=== PATIENT | female | born 1950 | race Caucasian/White ===

== ENCOUNTER 2019-05-10 08:37 | Inpatient (IN) | payer OTHER, MEDICARE ==
[2019-05-10] MEDS: NA CHLORIDE 0.9% 1,000 ML ONE ×3 (08:45→19:15)
[2019-05-10] MEDS ORDERED: CEFAZOLIN/SWI 1gm 1 GM/10 ML SYR ONE (08:59)
[2019-05-10 09:00] LABS: Potassium 4.5 mmol/L (3.5-5.1)
[2019-05-10 09:01] LABS: Absolute Lymphocytes (CBC) 2.4 K/uL (0.7-4.9); Basophils % 0.7 % (0-1.3); Hematocrit 49.1 % (36.0-45.0); Lymphocytes % 25.8 % (15.3-44.8); MPV 7.9 fL (7.6-11.3); RBC Red Blood Cell Count 5.49 M/uL (3.86-4.86)
--- NOTE | 2019-05-10 09:03 | RAD REPORT ---
EXAM DESCRIPTION: Hilda Sheikh (2 Views)05/10/2019 8:38 am CLINICAL HISTORY: Breast cancer. Preop breast surgery COMPARISON: None FINDINGS: The lungs appear clear of acute infiltrate. The heart is normal size IMPRESSION: No acute abnormalities displayed
--- NOTE | 2019-05-10 10:00 | RAD REPORT ---
EXAM DESCRIPTION: NM - Lymphoscintigraphy - 05/10/2019 9:33 am CLINICAL HISTORY: Breast cancer COMPARISON: None. TECHNIQUE: Four injections of 0.01 millicuries technetium filtered sulfur colloid administered into the the katy arerolar region of the right breast. The injections were placed at Twelve o'clock, 3 o'c lock, 6 o'clock and 9 o'clock positions. Subsequently a scintigram was obtained which demonstrated the radiotracer within these locations. IMPRESSION: Right breast lymphoscintigram
--- NOTE | 2019-05-10 10:28 | EKG ---
Test Date: 2019-05-10 Test Time: 07:12:35 [place] Traffic Checker: SKG MEASUREMENT RESULTS: Intervals: Rate: 80 TX: 136 QRSD: 74 QT: 348 QTc: 401 [place]: P: 70 TX: 136 QRS: 53 T: 78 INTERPRETIVE STATEMENTS: Normal sinus rhythm Low voltage QRS Borderline ECG No previous ECG available for comparison Electronically Signed On 05-10-19 10:27:43 CDT by Min Barrios
[2019-05-10] MEDS ORDERED: ALBUTEROL 2.5 MG/3 ML NEB SOL ONE (11:04)
[2019-05-10] MEDS ORDERED: METHYLENE BLUE 0.5% 10 ML AMP ONE (11:05)
[2019-05-10] MEDS ORDERED: ROCURONIUM 50 MG/5 ML VIAL IV ONE (11:35)
[2019-05-10] MEDS ORDERED: EPHEDRINE SULF 50 MG/ML VIAL ONE (11:52)
[2019-05-10] MEDS ORDERED: NS 0.9% VIAL 10 ML ONE ×2 (11:52→12:07)
[2019-05-10] MEDS ORDERED: Phenylephrine HCl 10 MG/ML 1 ML VIAL ONE (12:07)
[2019-05-10] MEDS ORDERED: NA CHLORIDE 0.9% 1,000 ML ONE (13:23)
[2019-05-10] MEDS: HYDROMORPHONE HCL 1 MG/ML INJ ONE ×2 (14:53→15:02)
--- NOTE | 2019-05-10 15:40 | OP ---
Date of Procedure: 05/10/2019 Surgeon: Gutierrez Wilburn MD Senior Quality Manager: MILDRED Dooley. Preoperative Diagnosis: Right breast cancer. Postoperative Diagnosis: Right breast cancer. Procedures: Right breast mastectomy, sentinel node biopsy and axillary dissection. Estimated Blood Loss: Minimal. Specimen: Right breast margins free sentinel node which was positive and axillary dissection. Findings: As above. Anesthesia: General. Complications: None. Drains: ZAHEER #7 flat x2. Patient tolerated the procedure in stable condition, taken to Recovery in good general condition. Procedure In Detail: Patient was brought to the OR, placed in supine position. General anesthesia b egun. Then, methylene blue injected around the nipple-areolar complex. The breast was massaged. Th is was done under sterile conditions, and then patient was prepped and draped in the usual sterile fa shion. Then, O'Gerson was utilized. It was very difficult to isolate the sentinel node. So at this point, I decided to go ahead and do the mastectomy. I would look at the lymph nodes after the maste ctomy specimen was removed. So ellipse of skin around the nipple-areolar complex was made approximat corey 30 x 10 cm including the nipple-areolar complex and then flaps were created superiorly to the cla vicle medially to the sternal border, inferior to the insertion of the rectus abdominis muscle, and l aterally to the inferior border of the latissimus dorsi muscle. All breast tissue off the pectoralis fascia was removed and this was sent to Pathology. After the breast was removed, the axillary regio n was examined. There was 1 hard lymph node suspicious for metastatic disease, clinically was identi fied and sent to Pathology. Frozen section revealed it to be positive for metastatic disease. Then, an axillary dissection was performed in the standard fashion isolating the axillary vein, thoracodor nelda neurovascular bundle, long thoracic neurovascular bundle, as well as the intercostal nerve. Subs equently all lymph nodes in this area utilizing vascular clips and 2-0 chromic ties as needed were ex cised in this region. The entire wound was irrigated and the flap as well and the axilla, and frozen section on the margin check revealed margins to be free. Then, 2 Jose-Baldwin #7 flat were placed and secured, 1 underneath the flap and 1 in the axilla with 3-0 nylon and then 2-0 chromic. 2-0 wool dyer reinaldo used to approximate the subcutaneous tissue and close the skin. Sterile dressing was applied. P atient was awakened and taken to Recovery in good general condition. Discharge Note: The patient will go to Day Surgery and home when stable. Disposition: Home. Condition: Stable. Discharge Instructions: Resume home medications and diet. Activity as tolerated. No heavy lifting. Keep dressing clean and dry, sponge bath only. Record ZAHEER output q.12. Bring record to office. Te ach patient and family how to do that as well as the strip tubing p.r.n. Tylenol No. 3 one tablet p. o. q.4 p.r.n. pain, Keflex 500 mg p.o. q.6, and follow up in my office in 1 week, call for alfredito LEVI/ZACHARY Voice ID: [id number] Report ID: [id number]
[2019-05-10] MEDS ORDERED: INSULIN -REGULAR HUMAN 50 UNIT/0.5 ML ML ONE ×2 (16:48→21:28)
[2019-05-10] MEDS: NALOXONE HCL 2 MG/2 ML VIAL ONE (19:48)
--- NOTE | 2019-05-10 19:52 | P.HP ---
Certification for Inpatient Patient admitted to: Observation With expected LOS: <2 Midnights Patient will require the following post-hospital care: None Practitioner: I am a practitioner with admitting privileges, knowledge of patient current condition, hospital course, and medical plan of care. Services: Services provided to patient in accordance with Admission requirements found in Title 42 Section 412.3 of the Code of Federal Regulations Patient History Date of Service: 05/10/19 Primary Care Provider: Dr. Encarnacion; Surgery-Dr. Wilburn; Oncology-Dr. Leal Reason for admission: Hypoxia History of Present Illness: 69 yo CF with history of Breast cancer, HTN, DM, COPD, Tobacco abuse and JOHNNIE. I was asked to evaluate the patient by Dr. Wilburn-Surgery after she was noted to have some hypoxia after outpatient right mastectomy. After recovery, she was hypoxic and required further weaning off oxygen. She was also lethargic. No fever, chills or chest pain was noted. She was given dilaudid after surgery. Nurse reported that the reports that her oxygen is sometimes low around 88-90%. She has COPD and only takes Albuterol. She is a heavy smoker and has underlying JOHNNIE but has not followed up with Pulmonary. When I saw the patient, she was lethargic, She was requiring oxygen to maintain her oxygen sats. She was not in respiratory distress. She was improving. Suspected hypoxia related to COPD exacerbation post operatively. Patient will be admitted for observation. Case discussed with Surgery and he agrees. Allergies No Known Allergies Allergy (Verified 05/10/19 07:59) Home medications list reviewed: Yes Home Medications: Albuterol Inhaler [Ventolin Inhaler] 2 puff IH Q6H PRN 05/10/19 Carvedilol [Coreg] 12.5 mg PO DAILY AFTER SUPPER 05/10/19 Gabapentin 600 mg PO TID 05/10/19 Glimepiride 1 mg PO DAILY 05/10/19 Lisinopril/Hydrochlorothiazide [Lisinopril-Hctz 10-12.5 mg Tab] 1 each PO DAILY AFTER SUPPER 05/10/19 Mesalamine [Apriso] 4 tab PO DAILY 05/10/19 Metformin HCl 1,000 mg PO BID 05/10/19 Montelukast [Singulair] 10 mg PO DAILY 05/10/19 Omeprazole [Prilosec] 40 mg PO DAILY 05/10/19 Pravastatin Sodium 40 mg PO DAILY 05/10/19 - Past Medical/Surgical History Diabetic: Yes -: DM Type 2 -: HTN -: Hyperlipidemia -: COPD -: Tobacco abuse -: Suspect JOHNNIE -: Tubal ligation Psychosocial/ Personal History: . - Family History Family History: Reviewed- Non-Contributory - Social History Smoking Status: Heavy Tobacco smoker (>10 cigarettes/day) Counseled patient to stop smoking for: less than 10 minutes Smoking therapy provided: No Alcohol use: No Caffeine use: No Place of Residence: Home Review of Systems General: As per HPI Eyes: Unremarkable ENT: Unremarkable Respiratory: As per HPI Cardiovascular: Unremarkable Gastrointestinal: Unremarkable Genitourinary: Unremarkable Musculoskeletal: Unremarkable Integumentary: Unremarkable Neurological: Unremarkable Lymphatics: Unremarkable Physical Examination - Vital Signs Temperature: 97 F Blood Pressure: 156/53 Pulse: 98 Respirations: 20 - Physical Exam General: Alert, In no apparent distress, Oriented x3, Cooperative, Other (some sedation but post op mastectomy) HEENT: Atraumatic, Normocephalic, Mucous membr. moist/pink Neck: Supple Respiratory: Expiratory wheezes Cardiovascular: Normal pulses, Regular rate/rhythm Gastrointestinal: Normal bowel sounds, Soft and benign, Non-distended, No ascites, No tenderness, No masses, No rebound, No guarding Musculoskeletal: No tenderness, No warmth Integumentary: Other (Post op changes to the right breast region. ) Neurological: Normal speech, Normal strength at 5/5 x4 extr, Normal tone, Normal affect - Studies Laboratory Data (last 24 hrs) 05/10/19 08:23: Sodium 135 L, Potassium 4.5, BUN 20 H, Creatinine 0.93, Glucose 249 H 05/10/19 08:23: WBC 9.5, Hgb 15.8 H, Hct 49.1 H, Plt Count 435 H Assessment and Plan - Plan Impression: Hypoxia likely from COPD exacerbation complicated with post op right mastectomy due to breast cancer HTN DM Type 2 Hyperlipidemia Tobacco abuse Suspect JOHNNIE Plan: Patient will be admitted for observation due to hypoxia. Suspect COPD exacerbation. Case discussed with Surgery. Will start Prednisone 10 mg daily, Dulera, and Proair. Will wean off oxygen. Will obtain lab-BMP, CBC, and CXR. Will have respiratory wean off oxygen. She may require CPAP at night. Will monitor closely. Monitor off sedation from pain medication and anesthesia. Will require medication as discharge for COPD. She may require oxygen at discharge. Will restart her home medication for HTN, Hyperlipidemia. Will provide sliding scale and monitor accuchecks. Will provide nicotine patch as well. Will reassess in the am. Anticipate DC home tomorrow if stable. Surgery agrees with plan of care. Discharge Plan: Home Plan to discharge in: 24 Hours - Advance Directives Does patient have a Living Will: No Does patient have a Durable POA for Healthcare: No - Code Status/Comfort Care Code Status Assessed: Yes (Patient is full code) Time Spent Managing Pts Care (In Minutes): 55
[2019-05-10 20:03] LABS: Arterial Blood Carboxyhemoglob 1.9 % (0-1.5); Blood Gas Oxyhemoglobin 91.3 % (94-97); Blood O2 Saturation 93.9 % (92-98.5)
[2019-05-10] MEDS ORDERED: FUROSEMIDE 20 MG/ 2ML VIAL ONE ×2 (20:04→20:06)
[2019-05-10] MEDS ORDERED: ONDANSETRON 4 MG/2 ML VIAL IV PRN (20:07)
[2019-05-10] MEDS ORDERED: MAGNESIUM SULFATE 1 gm IVPB 1 GM/100 ML BAG IV ONE (20:11)
--- NOTE | 2019-05-10 20:29 | P.PN ---
Date of Service: 05/10/19 Pt with breast cancer s/p mastectomy of right breast today , developed altered mental status with increasing sedation and persistent hypoxia despite increasing NC 02 to 10 L .on arrival patient was very lethargic , s/p received Dilaudid earlier . 1 mg narcan given , stat ABG obtained and initiated on bipap via nasal airway. patient started to slowly improved . wrist restraints applied . Iv steroids , duonebs started -will transfer to ICU and monitor overnight .
[2019-05-10] MEDS: INSULIN -REGULAR HUMAN 50 UNIT/0.5 ML ML SQ SCH (21:00)
[2019-05-10] MEDS: NA CHLORIDE 0.9% 1,000 ML IV SCH (21:00)
[2019-05-10 22:22] LABS: Arterial Blood Carboxyhemoglob 1.7 % (0-1.5); Blood Gas Oxyhemoglobin 94.3 % (94-97); Blood O2 Saturation 96.8 % (92-98.5)
[2019-05-10 22:44] VITALS: BMI 36.3
[2019-05-10] MEDS: ALBUTEROL 2.5 MG/3 ML NEB SOL NEB SCH (23:25)
[2019-05-10] MEDS: IPRATROPIUM BROM 0.5MG/2.5ML NEB SCH (23:25)
[2019-05-10] MEDS: METHYLPREDNISOLONE 125 MG INJ IV SCH (23:59)
[2019-05-11] MEDS: ALBUTEROL 2.5 MG/3 ML NEB SOL NEB SCH ×3 (04:25→11:44)
[2019-05-11] MEDS: IPRATROPIUM BROM 0.5MG/2.5ML NEB SCH ×5 (04:25→20:20)
[2019-05-11 05:07] LABS: Basophils % 0.8 % (0-1.3); Hematocrit 41.9 % (36.0-45.0); Lymphocytes % 7.2 % (15.3-44.8); MPV 7.8 fL (7.6-11.3)
[2019-05-11 05:28] LABS: Bilirubin Total 0.2 mg/dL (0.2-1.0)
[2019-05-11 05:30] LABS: Potassium 6.1 mmol/L (3.5-5.1)
[2019-05-11] MEDS ORDERED: SOD POLYSTYREN SUL 15 GM/60 ML UCUP PO ONE (05:45)
--- NOTE | 2019-05-11 05:48 | P.PN ---
Date of Service: 05/11/19 pt labs shows elevated k , may be due to hemolyzed sample vs respiratory induced -will obtain repeat ABG - dose low dose kayexelate now - obtain repeat BMP in 5 hrs and follow .
[2019-05-11 06:23] LABS: Arterial Blood Carboxyhemoglob 1.1 % (0-1.5); Blood O2 Saturation 98.3 % (92-98.5)
[2019-05-11] MEDS: METHYLPREDNISOLONE 125 MG INJ IV SCH (06:40)
[2019-05-11] MEDS: NA CHLORIDE 0.9% 1,000 ML IV SCH (06:41)
[2019-05-11] MEDS ORDERED: GLIMEPIRIDE 2 MG TABLET PO SCH (08:00)
[2019-05-11 08:28] LABS: Blood Morphology Comment NOT SEEN (NOT SEEN); Platelet Estimate ADEQ
[2019-05-11] MEDS: MONTELUKAST 10 MG TAB PO SCH (08:58)
[2019-05-11] MEDS: predniSONE 20 MG TAB PO SCH ×2 (08:58→20:50)
[2019-05-11] MEDS: INSULIN -REGULAR HUMAN 50 UNIT/0.5 ML ML SQ SCH ×4 (08:58→20:51)
[2019-05-11] MEDS: MESALAMINE PO SCH (08:58)
[2019-05-11] MEDS ORDERED: METFORMIN HCL 500 MG TAB PO SCH (09:00)
[2019-05-11 10:54] LABS: Potassium 5.5 mmol/L (3.5-5.1)
--- NOTE | 2019-05-11 11:26 | PN ---
Date of Progress Note: 05/11/2019 Subjective: Patient underwent a right mastectomy with sentinel node biopsy and axillary dissection y . Postoperatively, the patient had low saturation of her oxygen level and she was admitted f or that. She is a chronic smoker with COPD. Dr. Thorpe was consulted. The hospitalist was prince russo. She was admitted into the ICU. She does well when she is awake as far as her O2 saturations; h owever, when she is sleeping or drowsy, her saturations dropped and she is requiring a BiPAP and/or C PAP at this time. Therefore, she is not quite ready to go home. Dr. Thorpe has started her on александр roids and giving her some respiratory treatments. She is awake, alert. No complaint. Her vitals ar e stable. She is afebrile. Her ZAHEER drain is putting out 90 cc on the axillary drain, is serosanguino us. Laboratory Data: Her laboratory data reviewed. Her potassium is a little high and is being repeated right now, 6.1 at 4 o'clock in the morning. Her H and H are 13 and 41.9. Her white count slightly elevated at 14.4. Her dressing is clean, dry, intact. Assessment: Status post right mastectomy, sentinel node biopsy, and axillary dissection. Recommendations: We will add Ancef as the patient is in the hospital. She has slight leukocytosis a nd has drains in place. Continue medical management per the hospitalist and Dr. Thorpe. When she is cleared by pulmonary service for discharge, we will discharge the patient. She may need some supp lemental oxygen support at home and that will be determined by Dr. Thorpe. /MODL Voice ID: [id number] Report ID: [id number]
--- NOTE | 2019-05-11 12:04 | P.PN ---
Subjective Date of Service: 05/11/19 Primary Care Provider: Dr. Encarnacion; Surgery-Dr. Wilburn; Oncology-Dr. Leal Chief Complaint: Hypoxia Subjective: Other (Patient alert this morning. No distress noted. Patient still requiring BiPAP due to hypercapnia.) Physical Examination - Vital Signs Temperature: 97 F Blood Pressure: 115/55 Pulse: 89 Respirations: 20 Pulse Ox (%): 99 - Physical Exam General: Alert, In no apparent distress HEENT: Atraumatic Neck: Supple Respiratory: Clear to auscultation bilaterally, Normal air movement Cardiovascular: Normal pulses, Regular rate/rhythm Integumentary: No tenderness/swelling, No erythema, No warmth, No cyanosis Neurological: Normal speech, Normal strength at 5/5 x4 extr, Normal tone - Studies Laboratory Data (last 24 hrs) 05/11/19 11:00: Sodium Cancelled, Potassium Cancelled, BUN Cancelled, Creatinine Cancelled, Glucose Cancelled 05/11/19 10:17: Sodium 136, Potassium 5.5 H, BUN 27 H, Creatinine 0.98, Glucose 267 H 05/11/19 04:49: Sodium 136, Potassium 6.1 H*, BUN 26 H, Creatinine 1.09, Glucose 285 H, Total Bilirubin 0.2, AST 12 L, ALT 16, Alkaline Phosphatase 89 05/11/19 04:49: WBC 14.4 H D, Hgb 13.0 D, Hct 41.9, Plt Count 395 Medications List Reviewed: Yes Assessment & Plan Discharge Plan: Home Plan to discharge in: 48 Hours Physician Review Additional Text: Impression: Acute on chronic respiratory failure with hypoxia and hypercapnia likely from COPD exacerbation Status post right mastectomy with history of breast cancer Hyperkalemia HTN DM Type 2 Hyperlipidemia Tobacco abuse Suspect JOHNNIE Plan: Will continue with BiPAP at this time. Pulmonology consulted. Continue oral steroids. Patient likely with underlying COPD on treated and obstructive sleep apnea. Patient will likely require CPAP at night. Will consider noninvasive ventilator. Await further recommendations from respiratory. Continue with other medications. Patient given Kayexalate this morning for hyperkalemia. Will discuss with pulmonology. Anticipate discharge in the next 24-48 hr with clinical improvement. Time Spent Managing Pts Care (In Minutes): 55
[2019-05-11] MEDS: NICOTINE 14 MG/PAT TD SCH (12:18)
[2019-05-11] MEDS: ARFORMOTEROL TARTRATE 15 MCG/2 ML VIAL.NEB NEB SCH ×2 (12:20→20:20)
[2019-05-11] MEDS ORDERED: ALBUTEROL 2.5 MG/3 ML NEB SOL NEB PRN (12:21)
--- NOTE | 2019-05-11 12:22 | P.CNS ---
Date of Consult: 05/11/19 Reason for Consult: Respiratory failure Primary Care Provider: Dr. Encarnacion; Surgery-Dr. Wilburn; Oncology-Dr. Leal Chief Complaint: Respiratory failure History of Present Illness: Patient is 69 years of age status post right mastectomy lives in respiratory distress transfer to the ICU is currently on BiPAP this is a heavy smoker history of COPD and history of sleep apnea was sleep study done doing well on BiPAP uses some inhalers at home I do not see any long-acting bronchodilators Allergies No Known Allergies Allergy (Verified 05/10/19 07:59) Home Medications: Carvedilol [Coreg] 12.5 mg PO DAILY AFTER SUPPER 05/10/19 Gabapentin 600 mg PO TID 05/10/19 Lisinopril/Hydrochlorothiazide [Lisinopril-Hctz 10-12.5 mg Tab] 1 each PO DAILY AFTER SUPPER 05/10/19 Mesalamine [Apriso] 4 tab PO DAILY 05/10/19 Metformin HCl 1,000 mg PO BID 05/10/19 Montelukast [Singulair*] 10 mg PO DAILY 05/10/19 Omeprazole [Prilosec] 40 mg PO DAILY 05/10/19 Pravastatin Sodium 40 mg PO DAILY 05/10/19 Albuterol Inhaler [Ventolin Inhaler*] 2 puff IH Q6H PRN #1 hfa.aer.ad 05/12/19 Fluticasone/Salmeterol [Advair 250-50 Diskus] 1 each IH BID #1 blst.w.dev 05/12/19 Glimepiride [Amaryl*] 1 mg PO BID #60 tab 05/12/19 Nicotine [Nicoderm*] 14 mg TD DAILY #30 patch.[id number] 05/12/19 predniSONE [Prednisone*] 20 mg PO SEECOM #15 tab 05/12/19 - Past Medical/Surgical History Diabetic: Yes -: DM Type 2 -: HTN -: Hyperlipidemia -: COPD -: Tobacco abuse -: Suspect JOHNNIE -: ulcerative coltis -: Breast Cancer -: Tubal ligation Psychosocial/ Personal History: . - Family History Father Medical History: Hypertension Notes: GERD Mother Medical History: GI disease Notes: GERD - Social History Alcohol use: Yes CD- Drugs: No Caffeine use: Yes Place of Residence: Home Review of Systems is unable to be obtained Physical Examination Temp Pulse Resp BP Pulse Ox 97 F 89 20 115/55 L 99 05/11/19 12:04 05/11/19 12:04 05/11/19 12:04 05/11/19 12:04 05/11/19 12:04 General: Alert, Oriented x3 Respiratory: Expiratory wheezes Cardiovascular: No edema, Regular rate/rhythm Gastrointestinal: Normal bowel sounds, Soft and benign Musculoskeletal: No clubbing Laboratory Data (last 24 hrs) 05/11/19 11:00: Sodium Cancelled, Potassium Cancelled, BUN Cancelled, Creatinine Cancelled, Glucose Cancelled 05/11/19 10:17: Sodium 136, Potassium 5.5 H, BUN 27 H, Creatinine 0.98, Glucose 267 H 05/11/19 04:49: Sodium 136, Potassium 6.1 H*, BUN 26 H, Creatinine 1.09, Glucose 285 H, Total Bilirubin 0.2, AST 12 L, ALT 16, Alkaline Phosphatase 89 05/11/19 04:49: WBC 14.4 H D, Hgb 13.0 D, Hct 41.9, Plt Count 395 - Problems (1) Respiratory failure with hypoxia and hypercapnia Current Visit: Yes Status: Acute Plan: Patient has respiratory failure I suspect his acute on chronic heavy smoker history of COPD obstructive sleep apnea does not use a CPAP this hypercapnic hypoxic chest x-rays clear tolerating CPAP patient will need long-acting bronchodilators and an outpatient sleep study and probably qualify for home O2 console not to smoke she left to have a sleep study done in our to qualify for a CPAP or a BiPAP according to Medicare criteria labs reviewed Qualifiers: Chronicity: acute on chronic Qualified Code(s): J96.21 - Acute and chronic respiratory failure with hypoxia; J96.22 - Acute and chronic respiratory failure with hypercapnia
[2019-05-11] MEDS: GUAIFENESIN 600 MG SA TAB PO PRN (16:17)
[2019-05-11] MEDS: BENZONATATE 100 MG CAP PO PRN (16:18)
[2019-05-11] MEDS: METFORMIN HCL 500 MG TAB PO SCH (16:18)
[2019-05-11] MEDS: CEFAZOLIN/SWI 1gm 1 GM/10 ML SYR IV SCH (17:22)
[2019-05-11] MEDS: ALBUTEROL 2.5 MG/3 ML NEB SOL NEB PRN (20:20)
[2019-05-11] MEDS ORDERED: ATORVASTATIN 10 MG TAB PO SCH (21:00)
[2019-05-12] MEDS: CEFAZOLIN/SWI 1gm 1 GM/10 ML SYR IV SCH ×3 (00:11→17:17)
[2019-05-12] MEDS: IPRATROPIUM BROM 0.5MG/2.5ML NEB SCH ×3 (01:30→13:45)
[2019-05-12] MEDS ORDERED: PANTOPRAZOLE 40MG TABLET PO SCH ×2 (06:30→07:30)
[2019-05-12] MEDS: ARFORMOTEROL TARTRATE 15 MCG/2 ML VIAL.NEB NEB SCH (07:45)
[2019-05-12] MEDS: ALBUTEROL 2.5 MG/3 ML NEB SOL NEB PRN (07:45)
[2019-05-12] MEDS: MONTELUKAST 10 MG TAB PO SCH (08:03)
[2019-05-12] MEDS: NICOTINE 14 MG/PAT TD SCH (08:04)
[2019-05-12] MEDS: predniSONE 20 MG TAB PO SCH (08:04)
[2019-05-12] MEDS: METFORMIN HCL 500 MG TAB PO SCH ×2 (08:04→17:17)
[2019-05-12] MEDS: INSULIN -REGULAR HUMAN 50 UNIT/0.5 ML ML SQ SCH ×3 (08:05→17:17)
--- NOTE | 2019-05-12 08:05 | P.DS ---
Admission Date: 05/10/19 Discharge Date: 05/12/19 Primary Care Provider: Dr. Encarnacion; Surgery-Dr. Wilburn; Oncology-Dr. Leal Disposition: DC HOME/HOME HEALTH CARE Discharge Condition: GOOD Reason for Admission: Respiratory failure Consultations: Pulmonary-Dr. Thorpe Surgery-Dr. Wilburn Procedures: Surgery: Date of Procedure: 05/10/2019 Surgeon: Gutierrez Wilburn MD Preoperative Diagnosis: Right breast cancer. Postoperative Diagnosis: Right breast cancer. Procedures: Right breast mastectomy, sentinel node biopsy and axillary dissection. Estimated Blood Loss: Minimal. Specimen: Right breast margins free sentinel node which was positive and axillary dissection. Findings: As above. Anesthesia: General. Complications: None. Drains: ZAHEER #7 flat x2. Medical problem list: Acute on chronic respiratory failure with hypoxia and hypercapnia likely from COPD exacerbation and suspected obstructive sleep apnea Status post right breast mastectomy, sentinel node biopsy and axillary dissection due to history of breast cancer Hyperkalemia HTN DM Type 2 Hyperlipidemia Tobacco abuse Diabetic neuropathy Brief History of Present Illness: 69 yo CF with history of Breast cancer, HTN, DM, COPD, Tobacco abuse and JOHNNIE. I was asked to evaluate the patient by Dr. Wilburn-Surgery after she was noted to have some hypoxia after outpatient right mastectomy. After recovery, she was hypoxic and required further weaning off oxygen. She was also lethargic. No fever, chills or chest pain was noted. She was given dilaudid after surgery. Nurse reported that the reports that her oxygen is sometimes low around 88-90%. She has COPD and only takes Albuterol. She is a heavy smoker and has underlying JOHNNIE but has not followed up with Pulmonary. When I saw the patient, she was lethargic, She was requiring oxygen to maintain her oxygen sats. She was not in respiratory distress. She was improving. Suspected hypoxia related to COPD exacerbation post operatively. Patient will be admitted for observation. Case discussed with Surgery and he agrees. Hospital Course: Patient had a right breast mastectomy, sentinel node biopsy and axillary dissection due to history of breast cancer. Patient with underlying COPD, tobacco abuse, hypertension, and diabetes mellitus type 2. Post operatively patient was very lethargic. I was asked to evaluate patient by Surgery. Patient found to have acute on chronic respiratory failure with hypoxia and hypercapnia. This was likely related to COPD exacerbation with likely underlying obstructive sleep apnea. Patient was admitted to the ICU for close monitoring. Pulmonology was consulted. Patient required BiPAP. He was able to be weaned off. At this time patient requires oxygen. Arrangements for home health and home oxygen will be arranged to continue with COPD education and monitoring. At discharge patient will continue with home oxygen to maintain sats above 93%. Patient will continue with prednisone 20 mg 1 pill twice daily for 5 days then 1 pill once daily for 5 days. At discharge patient will be treated with Advair 1 puff twice daily and may continue with Pro air 2 puffs 3 times a day as needed for shortness of breath. Patient may also continue with Singulair 10 mg daily. Patient will follow up with pulmonology as an outpatient within 1 week. Patient will require further evaluation and treatment for underlying obstructive sleep apnea. Patient will likely require CPAP in the near future. This can be further addressed by pulmonology. Case discussed with pulmonology prior to discharge. Pulmonology agrees with plan of care. Patient also had hyperkalemia. This was treated. At discharge potassium remains in normal range. Patient with hypertension. This has remained stable without medication during the course of her stay. Will recommend for the patient to monitor her blood pressures daily. At discharge she may continue with her medications carvedilol 12.5 mg daily and lisinopril hydrochlorothiazide 10/12.5 mg daily. Recommend to maintain blood pressures less 150/80. Hold medications if systolic less than 110. Further adjustment can be done by her PCP. Patient with diabetes mellitus type 2. Patient with hyperglycemia. Patient may continue with metformin a 1000 mg 1 pill twice daily. At discharge will increased glimepiride to 1 mg twice daily. Recommend to maintain blood sugar less 140 fasting and less than 200 after meals. Further adjustment may be required. This can be further addressed by his PCP. Patient with hyperlipidemia. At discharge she will continue with her medication -pravastatin 40 mg daily. Patient with tobacco abuse. Tobacco cessation addressed in detail. Patient wants to quit. Will continue with nicotine patch as an outpatient. This can be further monitored an weaned off by PCP. As mentioned above patient status post right breast mastectomy with sentinel node biopsy and axillary dissection. Patient will continue with postsurgical care as recommended by surgery. Recommend follow up with surgery as per their recommendation. Spoke with surgery prior to discharge. Surgery agrees with plan of care. Surgery has provided antibiotic and pain medication at discharge. Patient with diabetic neuropathy. Patient may continue with gabapentin 600 mg 3 times a day. May need to hold medication if with increase sedation. Patient with GERD. At discharge patient will continue with her medication Prilosec 40 mg daily. Vital Signs/Physical Exam: Temp Pulse Resp BP Pulse Ox 97.6 F 106 H 18 133/63 91 05/12/19 04:00 05/12/19 04:00 05/12/19 04:00 05/12/19 04:00 05/11/19 17:00 General: Alert, In no apparent distress, Oriented x3, Cooperative HEENT: Atraumatic Neck: Supple Respiratory: Expiratory wheezes (Mild) Cardiovascular: Normal pulses, Regular rate/rhythm Gastrointestinal: Normal bowel sounds, Soft and benign, Non-distended, No rebound, No guarding Integumentary: Other (Postop changes to the upper chest) Neurological: Normal speech, Normal strength at 5/5 x4 extr, Normal tone, Normal affect Laboratory Data at Discharge: WBC 14.4 K/uL (4.3-10.9) H D 05/11/19 04:49 Hgb 13.0 g/dL (12.0-15.0) D 05/11/19 04:49 Hct 41.9 % (36.0-45.0) 05/11/19 04:49 Plt Count 395 K/uL (152-406) 05/11/19 04:49 Sodium 136 mmol/L (136-145) 05/11/19 10:17 Potassium 4.4 mmol/L (3.5-5.1) 05/11/19 18:51 BUN 27 mg/dL (7-18) H 05/11/19 10:17 Creatinine 0.98 mg/dL (0.55-1.3) 05/11/19 10:17 Glucose 267 mg/dL (74-106) H 05/11/19 10:17 Total Bilirubin 0.2 mg/dL (0.2-1.0) 05/11/19 04:49 AST 12 U/L (15-37) L 05/11/19 04:49 ALT 16 U/L (12-78) 05/11/19 04:49 Alkaline Phosphatase 89 U/L (45-117) 05/11/19 04:49 Home Medications: Carvedilol [Coreg] 12.5 mg PO DAILY AFTER SUPPER 05/10/19 Gabapentin 600 mg PO TID 05/10/19 Lisinopril/Hydrochlorothiazide [Lisinopril-Hctz 10-12.5 mg Tab] 1 each PO DAILY AFTER SUPPER 05/10/19 Mesalamine [Apriso] 4 tab PO DAILY 05/10/19 Metformin HCl 1,000 mg PO BID 05/10/19 Montelukast [Singulair*] 10 mg PO DAILY 05/10/19 Omeprazole [Prilosec] 40 mg PO DAILY 05/10/19 Pravastatin Sodium 40 mg PO DAILY 05/10/19 Albuterol Inhaler [Ventolin Inhaler*] 2 puff IH Q6H PRN #1 hfa.aer.ad 05/12/19 Fluticasone/Salmeterol [Advair 250-50 Diskus] 1 each IH BID #1 blst.w.dev Glimepiride [Amaryl*] 1 mg PO BID #60 tab 05/12/19 Nicotine [Nicoderm*] 14 mg TD DAILY #30 patch.td24 05/12/19 predniSONE [Prednisone*] 20 mg PO SEECOM #15 tab 05/12/19 New Medications: Albuterol Inhaler [Ventolin Inhaler*] 2 puff IH Q6H PRN #1 hfa.aer.ad PRN Reason: Shortness Of Breath Fluticasone/Salmeterol [Advair 250-50 Diskus] 1 each IH BID #1 blst.w.dev Glimepiride [Amaryl*] 1 mg PO BID #60 tab Nicotine [Nicoderm*] 14 mg TD DAILY #30 patch.td24 predniSONE [Prednisone*] 20 mg PO SEECOM #15 tab Patient Discharge Instructions: 1. Recommend follow up with PCP in 1 week to follow up this hospitalization. 2. Patient had a right breast mastectomy, sentinel node biopsy and axillary dissection due to history of breast cancer. Patient with underlying COPD, tobacco abuse, hypertension, and diabetes mellitus type 2. Post operatively patient was very lethargic. I was asked to evaluate patient by Surgery. Patient found to have acute on chronic respiratory failure with hypoxia and hypercapnia. This was likely related to COPD exacerbation with likely underlying obstructive sleep apnea. Patient was admitted to the ICU for close monitoring. Pulmonology was consulted. Patient required BiPAP. He was able to be weaned off. At this time patient requires oxygen. Arrangements for home health and home oxygen will be arranged to continue with COPD education and monitoring. At discharge patient will continue with home oxygen to maintain sats above 93%. Patient will continue with prednisone 20 mg 1 pill twice daily for 5 days then 1 pill once daily for 5 days. At discharge patient will be treated with Advair 1 puff twice daily and may continue with Pro air 2 puffs 3 times a day as needed for shortness of breath. Patient may also continue with Singulair 10 mg daily. Patient will follow up with pulmonology as an outpatient within 1 week. Patient will require further evaluation and treatment for underlying obstructive sleep apnea. Patient will likely require CPAP in the near future. This can be further addressed by pulmonology. Case discussed with pulmonology prior to discharge. Pulmonology agrees with plan of care. 3. Patient also had hyperkalemia. This was treated. At discharge potassium remains in normal range. 4. Patient with hypertension. This has remained stable without medication during the course of her stay. Will recommend for the patient to monitor her blood pressures daily. At discharge she may continue with her medications carvedilol 12.5 mg daily and lisinopril hydrochlorothiazide 10/12.5 mg daily. Recommend to maintain blood pressures less 150/80. Hold medications if systolic less than 110. Further adjustment can be done by her PCP. 5. Patient with diabetes mellitus type 2. Patient with hyperglycemia. Patient may continue with metformin a 1000 mg 1 pill twice daily. At discharge will increased glimepiride to 1 mg twice daily. Recommend to maintain blood sugar less 140 fasting and less than 200 after meals. Further adjustment may be required. This can be further addressed by his PCP. 6. Patient with hyperlipidemia. At discharge she will continue with her medication-pravastatin 40 mg daily. 7. Patient with tobacco abuse. Tobacco cessation addressed in detail. Patient wants to quit. Will continue with nicotine patch as an outpatient. This can be further monitored an weaned off by PCP. 8. As mentioned above patient status post right breast mastectomy with sentinel node biopsy and axillary dissection. Patient will continue with postsurgical care as recommended by surgery. Recommend follow up with surgery as per their recommendation. Spoke with surgery prior to discharge. Surgery agrees with plan of care. Surgery has provided antibiotic and pain medication at discharge. 9. Patient with diabetic neuropathy. Patient may continue with gabapentin 600 mg 3 times a day. May need to hold medication if with increase sedation. 10. Patient with GERD. At discharge patient will continue with her medication Prilosec 40 mg daily. Diet: ADA Activity: No lifting more than 10 lbs Followup: Gutierrez Wilburn MD [ACTIVE - CAN ADMIT] - 1 Week Time spent managing pt's care (in minutes): 55
[2019-05-12] MEDS: BENZONATATE 100 MG CAP PO PRN (08:09)
[2019-05-12] MEDS: MESALAMINE PO SCH (08:11)
[2019-05-12] MEDS ORDERED: CETIRIZINE HCL 5 MG TABLET PO SCH (09:00)
[2019-05-12] MEDS ORDERED: GLIMEPIRIDE 2 MG TABLET PO SCH (09:00)
--- NOTE | 2019-05-12 11:09 | DS ---
Date of Discharge: 05/12/2019 Admitting Diagnosis: Right breast cancer. Discharge Diagnoses: Right breast cancer, exacerbation of chronic obstructive pulmonary disease, sle ep apnea, Procedure Performed: Right breast mastectomy, sentinel node biopsy, and axillary dissection. Hospital Course: Patient is a 69-year-old female who underwent the aforementioned procedure. Howeve r, postoperatively her O2 sats were low requiring oxygen support. She has a long history of smoking and COPD. She was admitted to the hospital and pulmonary service was consulted. Appropriate recomme ndations were made. The patient was treated, doing well. She will need supplemental oxygen at home that is being arranged and therefore patient will be discharged home as she has been cleared by the p ulmonary service as well as the medical service. Disposition: Home. Condition: Stable. Discharge Instructions: Resume home medications and diet. New medications per the hospitalist and Lyric Thorpe and previous discharge instructions dictated already in the earlier discharge summary. T he patient is to follow up with me in a week. /MODL Voice ID: [id number] Report ID: [id number]
[2019-05-12] MEDS: GUAIFENESIN 600 MG SA TAB PO PRN (11:12)
[2019-05-12 17:13] VITALS: BP 133/54; TEMP 97.7; O2SAT 94
[2019-05-12] MEDS ORDERED: MIDAZOLAM HCL 2 MG/2 ML INJ IV ONE (18:59)
[2019-05-12] MEDS ORDERED: FENTANYL CITR 250 MCG/5 ML IV ONE (18:59)
[2019-05-12] MEDS ORDERED: propofoL 200 MG/20 ML VIAL IV ONE (18:59)
== END 2019-05-12 19:00 | disposition home health service (06) | DRG 981 ==
LOC: OR 08:37 → EDSTATUS 10:30 → 2ND 19:24 → 3RD-ICU 21:51 → 2ND 05-11 16:35
PROVIDERS: ADMIT Surgery; ATTEND Surgery
PROC: 0KXF0Z5 Transfer Right Trunk Muscle, Latissimus Dorsi Myocutaneous Flap, Open Approach (ICD-10-PCS; 2019-05-10)
PROC: 0HTT0ZZ Resection of Right Breast, Open Approach (ICD-10-PCS; 2019-05-10)
PROC: 0X9 Anatomical Regions, Upper Extremities, Drainage (ICD-10-PCS; 2019-05-10)
PROC: 0H95X0Z Drainage of Chest Skin with Drainage Device, External Approach (ICD-10-PCS; 2019-05-10)
PROC: 07B50ZX Excision of Right Axillary Lymphatic, Open Approach, Diagnostic (ICD-10-PCS; principal; 2019-05-10 10:30)
DX: J44.1 Chronic obstructive pulmonary disease with (acute) exacerbation (principal); J96.22 Acute and chronic respiratory failure with hypercapnia; J96.21 Acute and chronic respiratory failure with hypoxia; C50.911 Malignant neoplasm of unspecified site of right female breast; I10 Essential (primary) hypertension; Z85.3 Personal history of malignant neoplasm of breast; Z79.899 Other long term (current) drug therapy; Z79.84 Long term (current) use of oral hypoglycemic drugs; Z98.51 Tubal ligation status; F17.210 Nicotine dependence, cigarettes, uncomplicated; E78.5 Hyperlipidemia, unspecified; G47.33 Obstructive sleep apnea (adult) (pediatric); E87.5 Hyperkalemia; Z79.52 Long term (current) use of systemic steroids; E11.40 Type 2 diabetes mellitus with diabetic neuropathy, unspecified; E11.65 Type 2 diabetes mellitus with hyperglycemia; K21.9 Gastro-esophageal reflux disease without esophagitis
CPT/HCPCS: 36415; 71046; 78195; 80048; 80053; 82805; 82947; 84132; 85025; 88305; 88307; 88331; 93005; 94640; 94660; 94760; 97161; A9541; J0690; J1170; J1940; J2250; J2310; J2370; J2704; J2930; J3010; J3475; J7030; J7512; J7605

== ENCOUNTER 2019-07-14 08:12 | Day surgery (SDC) | payer OTHER, MEDICARE ==
[~2019-07-14 08:12] MED LIST: HEPARIN 5000 UNIT/ML 1 ML VIAL ONE; NS 0.9% VIAL 20 ML ONE
[2019-07-14 08:22] LABS: Absolute Lymphocytes (CBC) 1.5 K/uL (0.7-4.9); Basophils % 1.5 % (0-1.3); Hematocrit 34.5 % (36.0-45.0); Lymphocytes % 30.7 % (15.3-44.8); MPV 7.5 fL (7.6-11.3); RBC Red Blood Cell Count 3.91 M/uL (3.86-4.86)
[2019-07-14] MEDS: LIDOCAINE 1% 20 ML MDV ONE ×2 (08:29→08:58)
[2019-07-14] MEDS ORDERED: NA CHLORIDE 0.9% 1,000 ML ONE (08:48)
[2019-07-14] MEDS ORDERED: CEFAZOLIN/SWI 1gm 1 GM/10 ML SYR ONE (08:48)
[2019-07-14] MEDS ORDERED: propofoL 200 MG/20 ML VIAL IV ONE (09:17)
[2019-07-14] MEDS ORDERED: MIDAZOLAM HCL 2 MG/2 ML INJ ONE (09:17)
[2019-07-14] MEDS ORDERED: LIDOCAINE 1% MPF 5 ML VIAL ONE (09:17)
[2019-07-14] MEDS ORDERED: FENTANYL CITR 100 MCG/2 ML ONE (09:17)
--- NOTE | 2019-07-14 09:52 | RAD REPORT ---
EXAM DESCRIPTION: RAD - Fluoroscopy <1 Hour - 07/14/2019 9:44 am CLINICAL HISTORY: Device placement central venous catheter placement FINDINGS: A central venous catheter was placed into the superior vena cava. Two fluoroscopic spot im ages are submitted. The examination was performed by Dr. Wilburn Fluoroscopy time 0.2 minutes
[2019-07-14] MEDS: MORPHINE 4 MG/ML SYR ONE ×2 (10:05→10:27)
--- NOTE | 2019-07-14 10:27 | RAD REPORT ---
EXAM DESCRIPTION: WENDIFloridat Single View07/14/2019 10:13 am CLINICAL HISTORY: Device placement central venous line placement IMPRESSION: The tip of a central venous line is pointing laterally within the proximal superior vena cava. No pneumothorax.
[2019-07-14] MEDS ORDERED: CODEINE 30MG/APAP 300MG TAB PO ONE (11:00)
[2019-07-14] MEDS ORDERED: CODEINE 30MG/APAP 300MG TAB ONE (11:06)
--- NOTE | 2019-07-14 11:21 | OP ---
Date of Procedure: 07/14/2019 Surgeon: Gutierrez Wilburn MD Preoperative Diagnosis: Right breast cancer. Postoperative Diagnosis: Right breast cancer. Procedure: Left IJ Port-A-Cath placement and interpretation of intraoperative fluoroscopy. Estimated Blood Loss: Minimal. Specimens: None. Findings: Normal anatomy. Anesthesia: MAC. Complications: None. Patient tolerated the procedure in stable condition, taken to Recovery in good general condition. Procedure In Detail: Patient was brought to the OR and placed in supine position. MAC anesthesia wa s begun. The patient was prepped and draped in the usual sterile fashion. Lidocaine 1% infiltrated locally. An 18-gauge needle was used to access the left IJ. Guidewire passed, position confirmed wi th fluoroscopy. 3 cm counterincision made. Tunneling device was used to tunnel the catheter between the 2 wounds. Seldinger technique was used. Tip of the catheter was placed in the SVC under fluoro scopy. Cut to appropriate size and attached to the Port-A-Cath device. Port-A-Cath device was attac hed to subcutaneous tissue with 3-0 Vicryl. Port-A-Cath flushed with heparin and packed with heparin with good blood flow. Then 3-0 chromic used to reapproximate the subcutaneous tissue and close the skin. Sterile dressing was applied. Patient was awakened and taken to Recovery in good general cond ition. Discharge Note: Patient will have a chest x-ray, if negative patient will be discharged to home. Disposition: Home. Condition: Stable. Discharge Instructions: Resume home medications and diet. Activity as tolerated. No heavy lifting. Remove outer dressing in 2 days. Shower. Keep wound clean and dry. [facility]. [facility]. Call for appointment. Tylenol No.3 one t ablet p.o. q.4 p.r.n. pain and keep Steri-Strips on at all times. /MODL Voice ID: [id number] Report ID: [id number]
[2019-07-14 11:45] VITALS: BP 147/61; TEMP 97.5; O2SAT 96
== END 2019-07-14 11:35 | disposition home health service (06) ==
LOC: OR 08:12
PROVIDERS: ATTEND Surgery
PROC: 0JH60WZ Insertion of Totally Implantable Vascular Access Device into Chest Subcutaneous Tissue and Fascia, Open Approach (ICD-10-PCS; principal; 2019-07-14 09:00)
DX: C50.911 Malignant neoplasm of unspecified site of right female breast (principal)
CPT/HCPCS: 36561; 85025; 36415; 82947; 71045; J2704; J1644 ×2; J2250; J3010; J0690; J7030; C1788; 76000

== ENCOUNTER 2019-08-07 17:30 | Inpatient (IN) | payer OTHER, MEDICARE ==
[2019-08-07] MEDS ORDERED: ALBUTEROL 2.5 MG/3 ML NEB SOL ONE (18:52)
[2019-08-07] MEDS ORDERED: IPRATROPIUM BROM 0.5MG/2.5ML ONE (18:52)
[2019-08-07] MEDS ORDERED: ASPIRIN 81 MG CHEWABLE TABLET ONE (18:52)
--- NOTE | 2019-08-07 19:24 | RAD REPORT ---
EXAM DESCRIPTION: Hilda Single View08/07/2019 6:47 pm CLINICAL HISTORY: Shortness of breath COMPARISON: July 14, 2019 FINDINGS: Borderline mild interstitial pulmonary edema Heart is borderline enlarged. Such venous line has its tip in the superior vena cava
[2019-08-07 19:25] LABS: Protime INR 1.02
[2019-08-07 19:35] LABS: Absolute Lymphocytes (CBC) 1.7 K/uL (0.7-4.9); Basophils % 0.9 % (0-1.3); Hematocrit 30.9 % (36.0-45.0); Lymphocytes % 37.2 % (15.3-44.8); MPV 7.8 fL (7.6-11.3); RBC Red Blood Cell Count 3.47 M/uL (3.86-4.86)
[2019-08-07 19:46] LABS: ALT/SGPT 22 U/L (12-78); AST/SGOT 13 U/L (15-37); Albumin 2.8 g/dL (3.4-5.0); Alkaline Phosphatase 82 U/L (45-117); BUN Blood Urea Nitrogen 6 mg/dL (7-18); Bicarbonate 28 mmol/L (21-32); Bilirubin Direct < 0.1 mg/dL (0-0.2); Bilirubin Total 0.3 mg/dL (0.2-1.0); Glucose Level 173 mg/dL (74-106); NT PRO-BNP 299 pg/mL (<125); Sodium Level 142 mmol/L (136-145); Troponin (Emerg Dept Use Only) < 0.02 ng/mL (0.0-0.045)
[2019-08-07 19:49] LABS: Magnesium 1.2 mg/dL (1.8-2.4); Potassium 2.7 mmol/L (3.5-5.1)
[2019-08-07] MEDS ORDERED: POTASSIUM 25 MEQ EFFERV TAB ONE (20:13)
[2019-08-07] MEDS ORDERED: METHYLPREDNISOLONE 125 MG INJ ONE (20:13)
[2019-08-07] MEDS ORDERED: Magnesium Sulfate 2gm IVPB 2 G/50 ML BAG IV ONE (20:14)
[2019-08-07] MEDS ORDERED: KCL 20 MEQ/100 mL IVPB 20 MEQ/100 ML BAG IV ONE (20:14)
[2019-08-07] MEDS ORDERED: NA CHLORIDE 0.9% 250 ML ONE (20:14)
--- NOTE | 2019-08-08 01:33 | P.HP ---
Certification for Inpatient Patient admitted to: Observation With expected LOS: <2 Midnights Practitioner: I am a practitioner with admitting privileges, knowledge of patient current condition, hospital course, and medical plan of care. Services: Services provided to patient in accordance with Admission requirements found in Title 42 Section 412.3 of the Code of Federal Regulations Patient History Date of Service: 08/08/19 Reason for admission: Shortness of breath History of Present Illness: 69-year-old woman with a history of COPD presented emergency department with a 4 day history of shortness of breath, wheezing and nonproductive cough. Patient has a history of obstructive sleep apnea and states she has been compliant with CPAP use. She was previously on oxygen but this was discontinued along the line. Her oxygen saturation was 89% on room air in the ED. Chest x-ray does show mild borderline interstitial edema. Her D-dimer is elevated. CTA thorax is performed and result is pending. Patient given breathing treatment in the ED with partial improvement in her symptoms. She is hospitalized for further management of COPD exacerbation and CHF. Allergies No Known Allergies Allergy (Verified 07/14/19 08:15) Home Medications: Carvedilol [Coreg] 12.5 mg PO BID 05/10/19 Gabapentin 600 mg PO TID 05/10/19 Lisinopril/Hydrochlorothiazide [Lisinopril-Hctz 10-12.5 mg Tab] 1 each PO DAILY AFTER SUPPER 05/10/19 Mesalamine [Apriso] 4 tab PO DAILY 05/10/19 Metformin HCl 1,000 mg PO BID 05/10/19 Omeprazole [Prilosec] 40 mg PO DAILY 05/10/19 Pravastatin Sodium 40 mg PO DAILY 05/10/19 Albuterol Inhaler [Ventolin Inhaler*] 2 puff IH Q6H PRN #1 hfa.aer.ad 05/12/19 Clotrim/Betameth Cream [Lotrisone Cream] 15 gm TP BID 07/14/19 Fluticasone/Umeclidin/Vilanter [Trelegy Ellipta 100-62.5-25] 1 each IH DAILY 07/14/19 Glimepiride [Amaryl*] 1 mg PO DAILY 07/14/19 Loperamide [Imodium Liq] 30 ml PO Q4H PRN 07/14/19 - Past Medical/Surgical History Diabetic: Yes -: DM Type 2 -: HTN -: Hyperlipidemia -: COPD -: Tobacco abuse -: Suspect JOHNNIE -: ulcerative coltis -: Breast Cancer -: Tubal ligation Psychosocial/ Personal History: . - Family History Father -: Hypertension Notes: GERD Mother -: GI disease Notes: GERD - Social History Smoking Status: Former smoker Alcohol use: Yes CD- Drugs: No Caffeine use: Yes Review of Systems Other: Except as documented, all other systems reviewed and negative. Physical Examination - Physical Exam General: Alert, In no apparent distress, Oriented x3, Obese HEENT: Normocephalic, Mucous membr. moist/pink, Sclerae nonicteric Neck: Supple, JVD not distended Respiratory: Clear to auscultation bilaterally, Normal air movement Cardiovascular: No edema, Regular rate/rhythm, Normal S1 S2, No murmurs Capillary refill: <2 Seconds Gastrointestinal: Normal bowel sounds, Soft and benign, No tenderness Musculoskeletal: No swelling, No erythema Integumentary: No rashes Neurological: Normal speech, Normal strength at 5/5 x4 extr, Cranial nerves 3-12 intact - Studies Laboratory Data (last 24 hrs) 08/07/19 19:00: PT 12.0, INR 1.02 08/07/19 19:00: WBC 4.5 D, Hgb 9.8 L, Hct 30.9 L, Plt Count 389 08/07/19 19:00: Sodium 142, Potassium 2.7 L*, BUN 6 L, Creatinine 0.66, Glucose 173 H, Magnesium 1.2 L*, Total Bilirubin 0.3, AST 13 L, ALT 22, Alkaline Phosphatase 82 Assessment and Plan - Problems (Diagnosis) (1) Acute respiratory failure with hypoxemia Current Visit: Yes Status: Acute (2) COPD exacerbation Current Visit: Yes Status: Acute (3) DM type 2 (diabetes mellitus, type 2) Current Visit: Yes Status: Acute (4) Elevated d-dimer Current Visit: Yes Status: Acute - Plan Place under observation. Treat COPD exacerbation IV steroids, scheduled bronchodilators. Oxygen as needed. Follow CTA thorax result Insulin sliding scale for glucose management. Consult to pulmonary. Home oxygen qualification on discharge. - Advance Directives Does patient have a Living Will: No Does patient have a Durable POA for Healthcare: No
--- NOTE | 2019-08-08 01:40 | ER ---
Nurse's Notes [facility] Name: Marnie Deluca Age: 69 yrs Sex: Female : 1950 Arrival Date: 08/07/2019 Time: 17:31 Bed 7 Private MD: Mani Encarnacion R Diagnosis: Hypoxemia;Chronic obstructive pulmonary disease with (acute) exacerbation;Hypokalemia;Hypomagnesemia;Dyspnea, unspecified Presentation: 08/06 18:02 Chief complaint: Patient states: hx of breast cancer, on IV chemo, has had increased iw swelling all over body and SOB X 4 days, also has chest pain on exertion, has chronic cough, recently had steroids reduced, sees Dr. Leal and Dr. Thorpe, hx of COPD. Coronavirus screen: Patient reports shortness of breath or difficulty breathing. Patient denies measured and/or subjective temperature greater than 100.4F prior to today's visit. Patient denies travel on a cruise ship or to a country the [facility] currently lists as an affected area. Patient denies contact with known and/or suspected case of COVID-19. Ebola Screen: Patient negative for fever greater than or equal to 101.5 degrees Fahrenheit, and additional compatible Ebola Virus Disease symptoms Patient denies exposure to infectious person. Patient denies travel to an Ebola-affected area in the 21 days before illness onset. No symptoms or risks identified at this time. Initial Sepsis Screen: Does the patient meet any 2 criteria? No. Patient's initial sepsis screen is negative. Does the patient have a suspected source of infection? No. Patient's initial sepsis screen is negative. Risk Assessment: Do you want to hurt yourself or someone else? Patient reports no desire to harm self or others. Onset of symptoms was August 03, 2019. 18:02 Method Of Arrival: Wheelchair iw 18:02 Acuity: KODY 3 iw Triage Assessment: 18:05 General: Appears distressed, comfortable, obese, Behavior is cooperative, appropriate bp for age, anxious. Pain: Complains of pain in chest. EENT: No deficits noted. Neuro: No deficits noted. Cardiovascular: Rhythm is sinus rhythm. Respiratory: Reports shortness of breath Onset: The symptoms/episode began/occurred at an unknown time. the patient has mild shortness of breath. GI: No signs and/or symptoms were reported involving the gastrointestinal system. : No signs and/or symptoms were reported regarding the genitourinary system. Derm: No deficits noted. Musculoskeletal: Range of motion: intact in all extremities, Swelling present in right leg and left leg. Historical: - Allergies: 18:05 No Known Allergies; iw - Home Meds: 18:10 Apriso 0.375 gram oral cp24 4 caps once daily [Active]; omeprazole 40 mg Oral cpDR 1 iw cap once daily [Active]; lisinopril-hydrochlorothiazide 10-12.5 mg oral tab 1 tab once daily [Active]; carvedilol 12.5 mg oral tab 1 tab 2 times per day [Active]; metformin 1,000 mg Oral tab 1 tab 2 times per day [Active]; pravastatin 40 mg oral tab 1 tab once daily [Active]; - PMHx: 18:12 Cancer, Breast; COPD; Hypertension; Diabetes - NIDDM; iw - PSHx: 18:10 right mastectomy; Tubal ligation; iw - Immunization history:: Adult Immunizations up to date. - Social history:: Smoking status: Patient/guardian denies using tobacco, Stopped _ months ago 2. Screenin:30 Abuse screen: Denies threats or abuse. Denies injuries from another. Nutritional bp screening: No deficits noted. Tuberculosis screening: No symptoms or risk factors identified. Fall Risk None identified. Assessment: 18:05 General: SEE TRIAGE NOTE. Cardiovascular: Rhythm is sinus rhythm. Respiratory: Airway bp is patent Respiratory effort is even, unlabored, Breath sounds are coarse bilaterally. 19:00 Reassessment: NEB INFUSING. PT VS STABLE ON MONITOR. bp 19:37 General: Appears in no apparent distress. Behavior is calm, cooperative, appropriate ea for age. Pain: Denies pain. Neuro: Level of Consciousness is awake, alert, obeys commands, Oriented to person, place, time, situation. Cardiovascular: Patient's skin is warm and dry. Respiratory: Airway is patent Respiratory effort is even, unlabored, Respiratory pattern is regular, symmetrical, pt currently on 4 L of O2 per nasal canula. 20:30 Reassessment: Patient and/or family updated on plan of care and expected duration. Pain ea level reassessed. Patient is alert, oriented x 3, equal unlabored respirations, skin warm/dry/pink. 21:50 Reassessment: Patient and/or family updated on plan of care and expected duration. Pain ea level reassessed. Patient is alert, oriented x 3, equal unlabored respirations, skin warm/dry/pink. 22:30 Reassessment: Patient and/or family updated on plan of care and expected duration. Pain ea level reassessed. Patient is alert, oriented x 3, equal unlabored respirations, skin warm/dry/pink. IV to left AC infiltrated. Pt 20 G IV to left AC discontinued, catheter tip intact, pressure dressing applied bleeding controlled. 23:02 Reassessment: Patient and/or family updated on plan of care and expected duration. Pain ea level reassessed. Patient is alert, oriented x 3, equal unlabored respirations, skin warm/dry/pink. 08/07 00:57 Reassessment: Patient and/or family updated on plan of care and expected duration. Pain ea level reassessed. Patient is alert, oriented x 3, equal unlabored respirations, skin warm/dry/pink. Awaiting on CT results. 01:18 Reassessment: Patient and/or family updated on plan of care and expected duration. Pain ea level reassessed. Patient is alert, oriented x 3, equal unlabored respirations, skin warm/dry/pink. Provider at bedside updating pt on plan of care. 03:01 Reassessment: Patient and/or family updated on plan of care and expected duration. Pain ea level reassessed. Patient is alert, oriented x 3, equal unlabored respirations, skin warm/dry/pink. Report called to Tonya WAYNE. Pt left ED via wheelchair, per tech. Pt tolerating well. Vital Signs: 08/06 18:02 BP 180 / 86; Pulse 90; Resp 20 S; Temp 97.8; Pulse Ox 95% on R/A; Weight 117.93 kg; iw Height 5 ft. 9 in. (175.26 cm); Pain 0/10; 19:00 BP 161 / 68; Pulse 75; Resp 20; Pulse Ox 99% ; bp 20:00 BP 154 / 63; Pulse 69; Resp 18; Pulse Ox 98% ; ea 21:00 BP 151 / 62; Pulse 75; Resp 20; Pulse Ox 97% on 4 lpm NC; ea 22:40 BP 157 / 67; Pulse 75; Resp 19; Pulse Ox 99% on 4 lpm NC; ea 23:07 BP 166 / 76; Pulse 78; Resp 19; Pulse Ox 98% on 4 lpm NC; ea 08/07 00:18 BP 135 / 90; Pulse 67; Resp 18; Pulse Ox 99% ; ea 00:30 BP 158 / 68; Pulse 77; Resp 19; Pulse Ox 99% on 4 lpm NC; ea 00:30 Pulse Ox 89% on R/A; ea 01:30 BP 156 / 66; Pulse 72; Resp 20; Pulse Ox 98% ; ea 02:50 BP 142 / 60; Pulse 66; Resp 18; Pulse Ox 99% ; ea 08/06 18:02 Body Mass Index 38.39 (117.93 kg, 175.26 cm) iw ED Course: 08/06 17:31 Patient arrived in ED. ag5 17:32 Mani Encarnacion MD is Private Physician. ag5 17:46 Tushar Rae, ROSANA is Primary Nurse. bp 17:58 Alonso Wright PA is PHCP. cp 17:58 Mayco Shafer MD is Attending Physician. cp 18:05 Triage completed. iw 18:11 Arm band placed on. iw 18:30 Patient has correct armband on for positive identification. Bed in low position. Call bp light in reach. Side rails up X2. 18:43 EKG done, by ED staff, reviewed by Mayco Shafer MD. mh5 18:44 Patient has correct armband on for positive identification. Placed in gown. Bed in low mh5 position. Call light in reach. Side rails up X2. Adult w/ patient. monitoring analyst on. Pulse ox on. NIBP on. 18:44 Patient has correct armband on for positive identification. Placed in gown. Bed in low mh5 position. Call light in reach. Side rails up X2. monitoring analyst on. Pulse ox on. NIBP on. 18:47 XRAY Chest (1 view) In Process Unspecified. EDMS 19:00 Inserted saline lock: 22 gauge in left hand, using aseptic technique. Blood collected. bp 19:09 Mao Bo MD is Attending Physician. cp 21:35 Missed attempt(s): 20 gauge in left antecubital area. ea 21:40 Radiology exam delayed due to IV insertion attempt and/or patient not having kw1 appropriate IV at this time. 21:54 Inserted saline lock: 20 gauge in left antecubital area, using aseptic technique. Blood ea collected. 21:56 Accessed peripheral vein via ultrasound, utilizing dynamic ultrasound technique using jd3 20G Nexia IV catheter ,sterile technique, per hospital protocol. Clean \T\ dry. Dressing intact. Good blood return. Flushes easily. placed to the left AC. 22:53 Radiology exam delayed due to IV insertion attempt and/or patient not having kw1 appropriate IV at this time. 23:45 Accessed peripheral vein via ultrasound, utilizing dynamic ultrasound technique using sg ,sterile technique, per hospital protocol. Clean \T\ dry. Good blood return. Flushes easily. 20 G 8 CM PowerGlide Midline Pro, LUE. 08/07 00:22 CT Chest For PE Angio In Process Unspecified. EDMS 01:38 Prem Lou is Hospitalizing Provider. cp 02:05 No provider procedures requiring assistance completed. Patient admitted, IV remains in ea place. Administered Medications: 08/06 18:45 Drug: Aspirin Chewable Tablet 324 mg Route: PO; bp 19:00 Follow up: Response: No adverse reaction ea 18:45 Drug: Albuterol 2.5 mg Route: Inhalation; bp 18:45 Drug: AtroVENT Aerosol 0.5 mg Route: Inhalation; bp 20:10 Drug: SOLU-Medrol 125 mg Route: IVP; Site: left hand; ea 21:00 Follow up: Response: No adverse reaction ea 20:32 Drug: Potassium Effervescent Tablet 50 mEq Route: PO; ea 21:00 Follow up: Response: No adverse reaction ea 20:33 Drug: Magnesium Sulfate 2 grams Route: IVPB; Infused Over: 1 hrs; Site: left ea antecubital; 21:30 Follow up: Response: No adverse reaction; IV Status: Completed infusion ea 20:33 Drug: Potassium Chloride 20 mEq Route: IV; Rate: calculated rate; Site: left ea antecubital; 23:00 Follow up: Response: No adverse reaction; IV Status: Completed infusion ea Outcome: 08/07 01:40 Decision to Hospitalize by Provider. cp 02:05 Instructed on the need for admit, Demonstrated understanding of instructions. ea 03:01 Admitted to Med/surg accompanied by tech, via wheelchair, room 230, Report called to gildardo Castaneda RN on second floor 03:01 Condition: stable 03:03 Patient left the ED. ea Signatures: Dispatcher [employer] EDMS Goldy Salmeron RN RN sg Williams, Irene RN Alonso Singh PA PA cp Martinez, Maria [facility] Sofy Dave RN RN ea Davies, Jonathon, RN RN jd3 Peltier, Brian, RN RN bp Katie Henderson kw1 Bing, Rafita ag5 Corrections: (The following items were deleted from the chart) 08/06 22:00 21:56 Accessed peripheral vein via ultrasound, utilizing dynamic ultrasound technique jd3 using 20G Nexia IV catheter Clean \T\ dry. Dressing intact. Good blood return. Flushes easily. jd3 23:07 21:00 BP 151 / 62; Pulse 75bpm; Resp 20bpm; Pulse Ox 97% RA; ea ea 08/07 00:31 08/06 23:45 Accessed peripheral vein via ultrasound, utilizing dynamic ultrasound sg technique using ,sterile technique, per hospital protocol. Clean \T\ dry. Good blood return. Flushes easily. 20 G 8 CM PowerGlide Midline Pro. sg 08/07 00:57 00:57 Reassessment: Patient and/or family updated on plan of care and expected ea duration. Pain level reassessed. Patient is alert, oriented x 3, equal unlabored respirations, skin warm/dry/pink. ea
--- NOTE | 2019-08-08 01:40 | EDPHYS ---
Physician Documentation [facility] Name: Marnie Deluca Age: 69 yrs Sex: Female : 1950 Arrival Date: 08/07/2019 Time: 17:31 Bed 7 Private MD: Mani Encarnacion R ED Physician Mao Bo HPI: 08/06 18:20 This 69 yrs old Female presents to ER via Wheelchair with complaints of cp Shortness Of Breath, Swelling. 18:20 The patient has shortness of breath with light activity. Onset: The symptoms/episode cp began/occurred 4 day(s) ago. 18:20 Duration: The symptoms are continuous, and are steadily getting worse. cp 18:20 Associated signs and symptoms: Pertinent negatives: chest pain, productive cough, cp diaphoresis, fever. Severity of symptoms: in the emergency department the symptoms are unchanged despite home interventions. Historical: - Allergies: 18:05 No Known Allergies; iw - Home Meds: 18:10 Apriso 0.375 gram oral cp24 4 caps once daily [Active]; omeprazole 40 mg Oral cpDR 1 iw cap once daily [Active]; lisinopril-hydrochlorothiazide 10-12.5 mg oral tab 1 tab once daily [Active]; carvedilol 12.5 mg oral tab 1 tab 2 times per day [Active]; metformin 1,000 mg Oral tab 1 tab 2 times per day [Active]; pravastatin 40 mg oral tab 1 tab once daily [Active]; - PMHx: 18:12 Cancer, Breast; COPD; Hypertension; Diabetes - NIDDM; iw - PSHx: 18:10 right mastectomy; Tubal ligation; iw - Immunization history:: Adult Immunizations up to date. - Social history:: Smoking status: Patient/guardian denies using tobacco, Stopped _ months ago 2. ROS: 18:25 Cardiovascular: Negative for chest pain, edema, palpitations. cp 18:25 Constitutional: Negative for body aches, chills, fever, poor PO intake. cp 18:25 Respiratory: Positive for cough, shortness of breath, on exertion. Negative for sputum production, wheezing. 18:25 Eyes: Negative for injury, pain, redness, and discharge. cp 18:25 Abdomen/GI: Negative for abdominal pain, nausea, vomiting, and diarrhea. cp 18:25 Skin: Negative for rash. 18:25 Neuro: Negative for altered mental status, dizziness, headache, syncope, weakness. 18:25 All other systems are negative. Exam: 18:30 Constitutional: The patient appears in no acute distress, alert, awake, cp non-diaphoretic, non-toxic, well developed, well nourished. 18:30 Head/Face: Normocephalic, atraumatic. cp 18:30 Eyes: Periorbital structures: appear normal, Conjunctiva: normal, no exudate, no injection, Sclera: no appreciated abnormality, Lids and lashes: appear normal, bilaterally. 18:30 ENT: External ear(s): are unremarkable, Nose: is normal, Mouth: Lips: moist, Oral mucosa: pink and intact, moist, Posterior pharynx: is normal, airway is patent, no erythema, no exudate. 18:30 Chest/axilla: Inspection: normal, Palpation: is normal, no crepitus, no tenderness. 18:30 Cardiovascular: Rate: normal, Rhythm: regular, Edema: is not appreciated, JVD: is not appreciated. 18:30 Respiratory: the patient does not display signs of respiratory distress, Respirations: labored breathing, that is mild, intercostal retractions, are absent, Breath sounds: decreased breath sounds, that are mild, throughout, stridor, is not appreciated, wheezing: is not appreciated. 18:30 Abdomen/GI: Inspection: abdomen appears normal, Palpation: abdomen is soft and non-tender, in all quadrants. 18:30 Skin: no rash present. cp 18:30 Neuro: Orientation: to person, place \T\ time. Mentation: is normal, Motor: moves all fours, strength is normal. 18:35 ECG was reviewed by the Attending Physician. cp Vital Signs: 18:02 BP 180 / 86; Pulse 90; Resp 20 S; Temp 97.8; Pulse Ox 95% on R/A; Weight 117.93 kg; iw Height 5 ft. 9 in. (175.26 cm); Pain 0/10; 19:00 BP 161 / 68; Pulse 75; Resp 20; Pulse Ox 99% ; bp 20:00 BP 154 / 63; Pulse 69; Resp 18; Pulse Ox 98% ; ea 21:00 BP 151 / 62; Pulse 75; Resp 20; Pulse Ox 97% on 4 lpm NC; ea 22:40 BP 157 / 67; Pulse 75; Resp 19; Pulse Ox 99% on 4 lpm NC; ea 23:07 BP 166 / 76; Pulse 78; Resp 19; Pulse Ox 98% on 4 lpm NC; ea 08/07 00:18 BP 135 / 90; Pulse 67; Resp 18; Pulse Ox 99% ; ea 00:30 BP 158 / 68; Pulse 77; Resp 19; Pulse Ox 99% on 4 lpm NC; ea 00:30 Pulse Ox 89% on R/A; ea 01:30 BP 156 / 66; Pulse 72; Resp 20; Pulse Ox 98% ; ea 02:50 BP 142 / 60; Pulse 66; Resp 18; Pulse Ox 99% ; ea 08/06 18:02 Body Mass Index 38.39 (117.93 kg, 175.26 cm) iw MDM: 08/06 17:58 Patient medically screened. 19:00 Differential diagnosis: Anemia CHF exacerbation, Chronic Obstructive Pulmonary Disease cp Myocardial Infarction pneumonia, pulmonary edema, Pulmonary Embolism Unstable Angina. 08/07 00:45 Data reviewed: vital signs, nurses notes, lab test result(s), EKG, radiologic studies, cp plain films, I have discussed the patient's presentation/case with the attending Emergency Department Physician;. 00:51 Physician consultation: Prem Lou was called at 00:45, was contacted at 00:45, cp regarding admission, to the telemetry unit. patient's condition, and will see patient in ED, shortly. 08/06 18:18 Order name: Basic Metabolic Panel; Complete Time: 19:57 cp 08/06 19:58 Interpretation: Normal except: K 2.7; GLUC 173; BUN 6; GFR 89; CA 7.5. cp 08/06 18:18 Order name: CBC with Diff; Complete Time: 19:49 cp 08/06 19:50 Interpretation: Normal except: WBC 4.5; RBC 3.47; HGB 9.8; HCT 30.9; MCHC 31.9; RDW cp 16.0. 08/06 18:18 Order name: LFT's; Complete Time: 19:57 cp 08/06 19:57 Interpretation: Normal except: AST 13; TP 6.0; ALB 2.8; A/G 0.9. cp 08/06 18:18 Order name: Magnesium; Complete Time: 19:57 cp 06/28 19:58 Interpretation: Abnormal: MG 1.2. cp 06/28 18:18 Order name: NT PRO-BNP; Complete Time: 19:57 cp /28 18:18 Order name: PT-INR; Complete Time: 19:49 cp /28 18:18 Order name: Troponin (emerg Dept Use Only); Complete Time: 19:57 cp 08/06 18:18 Order name: XRAY Chest (1 view); Complete Time: 19:49 cp 28 20:24 Order name: LAB Add On cp 08/06 20:24 Order name: D-Dimer; Complete Time: 00:40 cp / 20:57 Order name: CT Chest For PE Angio; Complete Time: 23:12 cp 29 01:18 Order name: COVID-19; Complete Time: 23:12 cp 28 18:18 Order name: EKG; Complete Time: 18:19 cp 08/06 18:18 Order name: Cardiac monitoring; Complete Time: 18:31 cp 08/06 18:18 Order name: EKG - Nurse/Tech; Complete Time: 18:31 cp 28 18:18 Order name: IV Saline Lock; Complete Time: 19:01 cp 08/06 18:18 Order name: Labs collected and sent; Complete Time: 19:01 cp 08/06 18:18 Order name: O2 Per Protocol; Complete Time: 18:31 cp /28 18:18 Order name: O2 Sat Monitoring; Complete Time: 18:31 cp EC/28 18:35 Rate is 74 beats/min. Rhythm is regular. FL interval is normal. QRS interval is normal. cp QT interval is normal. T waves are Inverted in lead V5. Interpreted by me. Reviewed by me. Administered Medications: 18:45 Drug: Aspirin Chewable Tablet 324 mg Route: PO; bp 19:00 Follow up: Response: No adverse reaction ea 18:45 Drug: Albuterol 2.5 mg Route: Inhalation; bp 18:45 Drug: AtroVENT Aerosol 0.5 mg Route: Inhalation; bp 20:10 Drug: SOLU-Medrol 125 mg Route: IVP; Site: left hand; ea 21:00 Follow up: Response: No adverse reaction ea 20:32 Drug: Potassium Effervescent Tablet 50 mEq Route: PO; ea 21:00 Follow up: Response: No adverse reaction ea 20:33 Drug: Magnesium Sulfate 2 grams Route: IVPB; Infused Over: 1 hrs; Site: left ea antecubital; 21:30 Follow up: Response: No adverse reaction; IV Status: Completed infusion ea 20:33 Drug: Potassium Chloride 20 mEq Route: IV; Rate: calculated rate; Site: left ea antecubital; 23:00 Follow up: Response: No adverse reaction; IV Status: Completed infusion ea Disposition: 08/07 03:10 Co-signature as Attending Physician, Mao Bo MD. ma2 Disposition: 08/08/19 01:40 Hospitalization ordered by Prem Lou for Observation. Preliminary diagnosis are Hypoxemia, Chronic obstructive pulmonary disease with (acute) exacerbation, Hypokalemia, Hypomagnesemia, Dyspnea, unspecified. - Bed requested for Telemetry/MedSurg (observation). - Status is Observation. ea - Condition is Stable. - Problem is new. - Symptoms have improved. Signatures: Dispatcher [employer] EDCheryl Cortez RN RN iw Page, Corey, PA PA cp Marry Diaz RN RN cg Antunez, Elena, RN RN ea Peltier, Brian, RN RN bp Alzahri, Mohammad, MD MD ma2 Corrections: (The following items were deleted from the chart) 08/06 19:58 19:57 Normal except: K 2.7; GLUC 173; BUN 6; GFR 89. cp cp 08/07 02:11 01:40 Hospitalization Ordered by Prem Lou for Observation. Preliminary diagnosis cg is Hypoxemia; Chronic obstructive pulmonary disease with (acute) exacerbation; Hypokalemia; Hypomagnesemia; Dyspnea, unspecified. Bed requested for Telemetry/MedSurg (observation). Status is Observation. Condition is Stable. Problem is new. Symptoms have improved. cp 03:03 02:11 08/08/2019 01:40 Hospitalization Ordered by Prem Lou for Observation. ea Preliminary diagnosis is Hypoxemia; Chronic obstructive pulmonary disease with (acute) exacerbation; Hypokalemia; Hypomagnesemia; Dyspnea, unspecified. Bed requested for Telemetry/MedSurg (observation). Status is Observation. Condition is Stable. Problem is new. Symptoms have improved. cg
[2019-08-08] MEDS ORDERED: ACETAMINOPHEN 500 MG TAB PO PRN (03:08)
[2019-08-08] MEDS: ALBUTEROL 2.5 MG/3 ML NEB SOL NEB SCH ×5 (03:54→20:10)
[2019-08-08] MEDS: IPRATROPIUM BROM 0.5MG/2.5ML NEB SCH ×5 (03:54→20:10)
[2019-08-08 05:16] LABS: BUN Blood Urea Nitrogen 6 mg/dL (7-18); Bicarbonate 26 mmol/L (21-32); Glucose Level 201 mg/dL (74-106); Phosphorus 2.4 mg/dL (2.5-4.9); Potassium 3.2 mmol/L (3.5-5.1); Sodium Level 142 mmol/L (136-145)
[2019-08-08] MEDS: POTASS/SODIUM PHOSPHATE 1 PKT POWD.PACK PO SCH ×3 (06:15→10:10)
[2019-08-08] MEDS ORDERED: POTASSIUM 25 MEQ EFFERV TAB PO ONE (06:30)
[2019-08-08 06:48] LABS: Urine Appearance CLEAR; Urine Bilirubin NEGATIVE (NEG); Urine Blood NEGATIVE (NEG); Urine Color YELLOW; Urine Glucose 3+ (NEG); Urine Protein NEGATIVE (NEG); Urine Urobilinogen 0.2 mg/dL (0.2-1.0); Urine pH 6.5 (5.0-7.0)
[2019-08-08 07:06] LABS: Urine Microscopic Reflex NO UMIC
[2019-08-08] MEDS ORDERED: PNEUMOCOCCAL VACCINE 0.5 ML IMVAC ONE (08:00)
[2019-08-08] MEDS ORDERED: METHYLPREDNISOLONE 40 MG INJ IV SCH (09:00)
[2019-08-08] MEDS ORDERED: FUROSEMIDE 40 MG/4 ML VIAL IV SCH ×2 (09:00)
[2019-08-08] MEDS: INSULIN -REGULAR HUMAN 50 UNIT/0.5 ML ML SQ SCH ×4 (09:22→20:02)
[2019-08-08] MEDS: ENOXAPARIN 40 MG/0.4 ML SQ SCH (09:23)
[2019-08-08] MEDS: SPIRONOLACTONE 25 MG TABLET PO SCH ×2 (09:24→20:02)
--- NOTE | 2019-08-08 10:32 | RAD REPORT ---
EXAM DESCRIPTION: Chest For Pe Angio CLINICAL HISTORY: SOB COMPARISON: None. TECHNIQUE: CT CHEST ANGIOGRAPHY WITH IV CONTRAST on 08/07/2019 8:57 PM CDT. MIPS reconstructions were generated. This exam was performed according to our departmental dose-optimization program, which includes autom ated exposure control, adjustment of the mA and/or kV according to patient size and/or use of iterati ve reconstruction technique. MIP images were generated. FINDINGS: Thoracic aorta is normal in course and caliber without aneurysm or dissection. Pulmonary a rteries are adequately opacified without acute or chronic filling defects. The heart is normal in size. There is no pericardial effusion. Intrathoracic lymph nodes are not enla rged. There is a small to moderate right pleural effusion. There is a small left pleural effusion. Central airways are patent. There is right basilar atelectasis. There are no acute abnormalities within the limited images of the upper abdomen. There are no acute osseous findings. No suspicious bony lesions. IMPRESSION: No aortic dissection or aneurysm. No pulmonary embolus. Bilateral pleural effusions with no definite pneumonia. Electronically signed by: Dev Salcido MD 08/08/2019 2:01 AM CDT Due to temporary technical issues with the PACS/Fluency reporting system, reports are being signed by the in house radiologist without review as a courtesy to ensure prompt reporting. The interpreting r adiologist is fully responsible for the content of the report.
--- NOTE | 2019-08-08 12:46 | P.CNS ---
Date of Consult: 08/08/19 Reason for Consult: Shortness of breath Chief Complaint: Shortness of breath History of Present Illness: Patient is 69 years of age with a history of COPD admitted with progressive shortness of breath for the past 4 days denies any fever chills complaining of cough congestion compliant with her inhaler dyspnea on minimal exertion swelling of her lower extremity Allergies No Known Allergies Allergy (Verified 08/08/19 03:22) Home Medications: Lisinopril/Hydrochlorothiazide [Lisinopril-Hctz 10-12.5 mg Tab] 1 each PO DAILY AFTER SUPPER 05/10/19 Mesalamine [Apriso] 4 tab PO DAILY 05/10/19 Metformin HCl 1,000 mg PO BID 05/10/19 Omeprazole [Prilosec] 40 mg PO DAILY 05/10/19 Pravastatin Sodium 40 mg PO BEDTIME 05/10/19 Clotrim/Betameth Cream [Lotrisone Cream] 15 gm TP BID 07/14/19 Fluticasone/Umeclidin/Vilanter [Trelegy Ellipta 100-62.5-25] 1 each IH DAILY 07/14/19 Glimepiride [Amaryl*] 1 mg PO DAILY 07/14/19 Acetaminophen with Codeine [Acetaminophen-Cod #3 Tablet] 1 each PO DAILY PRN Meloxicam [Mobic] 7.5 mg PO SEECOM 08/08/19 carvediloL [Carvedilol] 12.5 mg PO BID 08/08/19 - Past Medical/Surgical History Diabetic: Yes -: DM Type 2 -: HTN -: Hyperlipidemia -: COPD -: Tobacco abuse -: Suspect JOHNNIE -: ulcerative coltis -: Breast Cancer -: Tubal ligation Psychosocial/ Personal History: . - Family History Father Medical History: Hypertension Notes: GERD Mother Medical History: GI disease Notes: GERD - Social History Alcohol use: No CD- Drugs: No Caffeine use: Yes Place of Residence: Home Review of Systems 10-point ROS is otherwise unremarkable Physical Examination Temp Pulse Resp BP Pulse Ox 97.0 F 91 H 20 142/74 H 94 08/08/19 08:00 08/08/19 09:24 08/08/19 08:00 08/08/19 09:24 08/08/19 08:00 General: Alert, Oriented x3 HEENT: Atraumatic Neck: Supple Respiratory: Expiratory wheezes Cardiovascular: No edema, Normal S1 S2 Gastrointestinal: Normal bowel sounds, Soft and benign, Non-distended Laboratory Data (last 24 hrs) 08/07/19 19:00: PT 12.0, INR 1.02 08/07/19 19:00: WBC 4.5 D, Hgb 9.8 L, Hct 30.9 L, Plt Count 389 08/07/19 19:00: Sodium 142, Potassium 2.7 L*, BUN 6 L, Creatinine 0.66, Glucose 173 H, Magnesium 1.2 L*, Total Bilirubin 0.3, AST 13 L, ALT 22, Alkaline Phosphatase 82 - Problems (1) COPD exacerbation Current Visit: Yes Status: Acute Plan: Patient is 69 years of age admitted with COPD exacerbation compliant with trilogy patient is also compliant with her CPAP at home patient has bilateral pleural effusion on CT right greater than left most likely she has underlying diastolic dysfunction at spironolactone Lasix once a day for now evaluate for home O2 labs CT scan chest x-rays all reviewed.ILD on CXRy
[2019-08-08] MEDS ORDERED: POTASSIUM CL SA 10 MEQ TAB PO ONE (12:59)
[2019-08-09] MEDS: ALBUTEROL 2.5 MG/3 ML NEB SOL NEB SCH ×3 (01:45→13:40)
[2019-08-09] MEDS: IPRATROPIUM BROM 0.5MG/2.5ML NEB SCH ×3 (01:45→13:40)
[2019-08-09 05:39] VITALS: BMI 39.0
[2019-08-09 05:53] LABS: Absolute Lymphocytes (CBC) 2.5 K/uL (0.7-4.9); Basophils % 0.8 % (0-1.3); Hematocrit 30.9 % (36.0-45.0); Lymphocytes % 31.7 % (15.3-44.8); MPV 7.6 fL (7.6-11.3); RBC Red Blood Cell Count 3.45 M/uL (3.86-4.86)
[2019-08-09 06:01] LABS: BUN Blood Urea Nitrogen 8 mg/dL (7-18); Bicarbonate 30 mmol/L (21-32); Glucose Level 167 mg/dL (74-106); Phosphorus 3.9 mg/dL (2.5-4.9); Potassium 3.2 mmol/L (3.5-5.1); Sodium Level 142 mmol/L (136-145)
[2019-08-09] MEDS ORDERED: POTASSIUM CL SA 10 MEQ TAB PO ONE (08:00)
[2019-08-09] MEDS: SPIRONOLACTONE 25 MG TABLET PO SCH (08:06)
[2019-08-09] MEDS: ENOXAPARIN 40 MG/0.4 ML SQ SCH (08:07)
[2019-08-09] MEDS: INSULIN -REGULAR HUMAN 50 UNIT/0.5 ML ML SQ SCH ×2 (08:07→10:57)
[2019-08-09 08:11] VITALS: O2SAT 95
[2019-08-09] MEDS ORDERED: FUROSEMIDE 40 MG TABLET PO SCH (09:00)
[2019-08-09] MEDS ORDERED: predniSONE 20 MG TAB PO SCH (09:00)
--- NOTE | 2019-08-09 09:01 | ECHO ---
HEIGHT: 5 ft 9 in WEIGHT: 264 lb 4.8ozDATE OF STUDY: 08/08/[address]: Aurora Reynolds MD 2-DIMENSIONAL: YES M.MODE: YES DOPPLER: NO COLOR FLOW: NO TDS: NO PORTABLE: NO DEFINITY: NO BUBBLE STUDY: NO DIAGNOSIS: ASSESS LEFT VENTRICULAR FUNCTION ON CHEMO CARDIAC HISTORY: CATHERIZATION: NO SURGERY: NO PROSTHETIC VALVE: NO PACEMAKER: NO MEASUREMENTS (cm) DIASTOLIC (NORMALS) SYSTOLIC (NORMALS) IVSd 1.2 (0.6-1.2) LA Diam 4.0 (1.9-4.0) LVEF 66% LVIDd 4.7 (3.5-5.7) LVIDs 3.0 (2.0-3.5) %FS 36% LVPWd 1.2 (0.6-1.2) Ao Diam 2.3 (2.0-3.7) 2 DIMENSIONAL ASSESSMENT: RIGHT ATRIUM: NORMAL LEFT ATRIUM: NORMAL RIGHT VENTRICLE: NORMAL LEFT VENTRICLE: NORMAL TRICUSPID VALVE: NOT SEEN WELL MITRAL VALVE: NORMAL PULMONIC VALVE: NOT SEEN WELL AORTIC VALVE: NORMAL PERICARDIAL EFFUSION: NONE AORTIC ROOT: NORMAL LEFT VENTRICULAR WALL MOTION: NORAML DOPPLER/COLOR FLOW: NOT REQUESTED. COMMENTS: THIS WAS A LIMITED STUDY TO EVALUATE LEFT VENTRICULAR EJECTION FRACTION. NORMAL LEFT VENTRICULAR EJECTION FRACTION 55-60% WITH NORMAL WALL MOTION. TECHNOLOGIST: Yue DEL ROSARIO
--- NOTE | 2019-08-09 11:34 | P.DS ---
Admission Date: 08/08/19 Discharge Date: 08/09/19 Primary Care Provider: Josr Thorpe Disposition: ROUTINE DISCHARGE Discharge Condition: GOOD Reason for Admission: Shortness of breath Consultations: Josr Thorpe Procedures: CT Scan: FINDINGS: Thoracic aorta is normal in course and caliber without aneurysm or dissection. Pulmonary arteries are adequately opacified without acute or chronic filling defects. The heart is normal in size. There is no pericardial effusion. Intrathoracic lymph nodes are not enlarged. There is a small to moderate right pleural effusion. There is a small left pleural effusion. Central airways are patent. There is right basilar atelectasis. There are no acute abnormalities within the limited images of the upper abdomen. There are no acute osseous findings. No suspicious bony lesions. IMPRESSION: No aortic dissection or aneurysm. No pulmonary embolus. Bilateral pleural effusions with no definite pneumonia. ECHO: Ejection fraction 55% LEFT VENTRICULAR WALL MOTION: NORAML DOPPLER/COLOR FLOW: NOT REQUESTED. COMMENTS: THIS WAS A LIMITED STUDY TO EVALUATE LEFT VENTRICULAR EJECTION FRACTION. NORMAL LEFT VENTRICULAR EJECTION FRACTION 55-60% WITH NORMAL WALL MOTION Medical Problem List: Acute on chronic respiratory failure with hypoxia secondary to COPD exacerbation complicated with bilateral pleural effusions likely related to acute on chronic diastolic CHF Diabetes mellitus type 2 vlo-unjfhlh-yjldajkmd Hypertension Obstructive sleep apnea History of breast cancer Former tobacco use GERD Hyperlipidemia Brief History of Present Illness: 69-year-old female with history of COPD, obstructive sleep apnea, diabetes and hypertension. Patient presented with increasing shortness of breath. Patient previously on home oxygen. Patient uses CPAP at home. Initial CT scan showed no pneumonia or pulmonary embolism. Pleural effusions noted. Patient admitted for further evaluation and treatment. Hospital Course: Patient presented with increasing shortness of breath. Patient with history of COPD and obstructive sleep apnea. Patient has CPAP machine at home. Patient previously on oxygen. Patient was evaluated in the emergency room. CT scan showed no pulmonary embolism but bilateral pulmonary pleural effusions noted. No pneumonia identified. Shortness of breast secondary to acute on chronic respiratory failure with hypoxia secondary to COPD exacerbation complicated with bilateral pleural effusions likely related to acute on chronic diastolic CHF. Patient seen and evaluated by pulmonology. Echocardiogram shows normal ejection fraction. Pulmonology recommended diuretic therapy. Patient has responded well. At discharge patient will continue with a 1500 cc per day fluid restriction and low-salt diet. Recommend to monitor weight daily. If weight increases by more than 5 lb she is to contact her PCP for further recommendation. For her CHF, patient will continue with Lasix 40 mg daily and Aldactone 25 mg 1 pill twice daily. For her COPD, patient will continue with prednisone 10 mg 1 pill twice daily for 5 days then 1 pill once daily for 5 days. Patient will also continue with her COPD medication including Trelegy 1 puff daily and albuterol 2 puffs 3 times a day as needed for shortness of breath. Patient has qualify for home oxygen. She is to continue home oxygen to maintain sats above 90%. Recommend follow up with pulmonology in 1-2 weeks to follow up this hospitalization. Recommend recheck chest x-ray in 2-4 weeks to monitor resolution. Education on CHF and COPD will be provided. Patient with diabetes mellitus type 2 non-insulin dependent. This has remained stable. At discharge she will continue with her medication including Amaryl 1 mg daily and metformin 1000 mg 1 pill twice daily. Recommend to maintain blood sugar less 140 fasting and less than 200 after meals. Further adjustment can be done by her PCP. Patient with hypertension. Medications have been adjusted since the patient will be on diuretic therapy. Patient will no longer take lisinopril hydrochlorothiazide. Patient may continue with carvedilol 12.5 mg 1 pill twice daily. Recommend to maintain blood pressure less 150/80. Patient may require additional medication in the future including lisinopril. This can be further addressed by her PCP. Patient with obstructive sleep apnea. Patient may continue with CPAP as d irected. Patient with hyperlipidemia. At discharge she will continue with pravastatin 40 mg daily. Patient with GERD. At discharge she will continue with Prilosec 40 mg daily. Recommend no further use of nonsteroidal anti-inflammatories including meloxicam. Patient takes mesalamine. She may continue with her medication. Vital Signs/Physical Exam: Temp Pulse Resp BP Pulse Ox 97.6 F 83 16 150/72 H 95 08/09/19 08:00 08/09/19 08:06 08/09/19 08:00 08/09/19 08:06 08/09/19 08:00 General: Alert, In no apparent distress, Oriented x3, Cooperative HEENT: Atraumatic Neck: Supple Respiratory: Clear to auscultation bilaterally, Normal air movement Cardiovascular: Normal pulses, Regular rate/rhythm Gastrointestinal: Normal bowel sounds, Soft and benign, Non-distended, No tenderness, No masses, No rebound, No guarding Musculoskeletal: No erythema, No tenderness, No warmth Integumentary: No tenderness/swelling, No erythema, No warmth, No cyanosis Neurological: Normal speech, Normal strength at 5/5 x4 extr, Normal tone, Normal affect Laboratory Data at Discharge: WBC 7.8 K/uL (4.3-10.9) D 08/09/19 05:21 Hgb 9.9 g/dL (12.0-15.0) L 08/09/19 05:21 Hct 30.9 % (36.0-45.0) L 08/09/19 05:21 Plt Count 440 K/uL (152-406) H 08/09/19 05:21 PT 12.0 SECONDS (9.5-12.5) 08/07/19 19:00 INR 1.02 08/07/19 19:00 Sodium 142 mmol/L (136-145) 08/09/19 05:21 Potassium 3.2 mmol/L (3.5-5.1) L 08/09/19 05:21 BUN 8 mg/dL (7-18) 08/09/19 05:21 Creatinine 0.59 mg/dL (0.55-1.3) 08/09/19 05:21 Glucose 167 mg/dL (74-106) H 08/09/19 05:21 Phosphorus 3.9 mg/dL (2.5-4.9) D 08/09/19 05:21 Magnesium 2.0 mg/dL (1.8-2.4) D 08/08/19 03:35 Total Bilirubin 0.3 mg/dL (0.2-1.0) 08/07/19 19:00 AST 13 U/L (15-37) L 08/07/19 19:00 ALT 22 U/L (12-78) 08/07/19 19:00 Alkaline Phosphatase 82 U/L (45-117) 08/07/19 19:00 Home Medications: Mesalamine [Apriso] 4 tab PO DAILY 05/10/19 Metformin HCl 1,000 mg PO BID 05/10/19 Omeprazole [Prilosec] 40 mg PO DAILY 05/10/19 Pravastatin Sodium 40 mg PO BEDTIME 05/10/19 Clotrim/Betameth Cream [Lotrisone Cream*] 15 gm TP BID 07/14/19 Fluticasone/Umeclidin/Vilanter [Trelegy Ellipta 100-62.5-25] 1 each IH DAILY 07/14/19 Glimepiride [Amaryl*] 1 mg PO DAILY 07/14/19 Acetaminophen with Codeine [Acetaminophen-Cod #3 Tablet] 1 each PO DAILY PRN 08/08/19 carvediloL [Carvedilol] 12.5 mg PO BID 08/08/19 Furosemide [Lasix*] 40 mg PO DAILY #30 tab 08/09/19 Spironolactone [Aldactone*] 25 mg PO BID #60 tab 08/09/19 predniSONE [Deltasone*] 10 mg PO SEECOM #15 tab 08/09/19 New Medications: Spironolactone [Aldactone*] 25 mg PO BID #60 tab predniSONE [Deltasone*] 10 mg PO SEECOM #15 tab Furosemide [Lasix*] 40 mg PO DAILY #30 tab Patient Discharge Instructions: 1. Recommend follow up with her PCP in 1 week to follow up this hospitalization. 2. Patient presented with increasing shortness of breath. Patient with history of COPD and obstructive sleep apnea. Patient has CPAP machine at home. Patient previously on oxygen. Patient was evaluated in the emergency room. CT scan showed no pulmonary embolism but bilateral pulmonary pleural effusions noted. No pneumonia identified. Shortness of breast secondary to acute on chronic respiratory failure with hypoxia secondary to COPD exacerbation complicated with bilateral pleural effusions likely related to acute on chronic diastolic CHF. Patient seen and evaluated by pulmonology. Echocardiogram shows normal ejection fraction. Pulmonology recommended diuretic therapy. Patient has responded well. At discharge patient will continue with a 1500 cc per day fluid restriction and low-salt diet. Recommend to monitor weight daily. If weight increases by more than 5 lb she is to contact her PCP for further recommendation. For her CHF, patient will continue with Lasix 40 mg daily and Aldactone 25 mg 1 pill twice daily. For her COPD, patient will continue with prednisone 10 mg 1 pill twice daily for 5 days then 1 pill once daily for 5 days. Patient will also continue with her COPD medication including Trelegy 1 puff daily and albuterol 2 puffs 3 times a day as needed for shortness of breath. Patient has qualify for home oxygen. She is to continue home oxygen to maintain sats above 90%. Recommend follow up with pulmonology in 1-2 weeks to follow up this hospitalization. Recommend recheck chest x-ray in 2-4 weeks to monitor resolution. Education on CHF and COPD will be provided. 3. Patient with diabetes mellitus type 2 non-insulin dependent. This has remained stable. At discharge she will continue with her medication including Amaryl 1 mg daily and metformin 1000 mg 1 pill twice daily. Recommend to maintain blood sugar less 140 fasting and less than 200 after meals. Further adjustment can be done by her PCP. 4. Patient with hypertension. Medications have been adjusted since the patient will be on diuretic therapy. Patient will no longer take lisinopril hydrochlorothiazide. Patient may continue with carvedilol 12.5 mg 1 pill twice daily. Recommend to maintain blood pressure less 150/80. Patient may require additional medication in the future including lisinopril. This can be further addressed by her PCP. 5. Patient with obstructive sleep apnea. Patient may continue with CPAP as directed. 6. Patient with hyperlipidemia. At discharge she will continue with pravastatin 40 mg daily. 7. Patient with GERD. At discharge she will continue with Prilosec 40 mg daily. 8. Recommend no further use of nonsteroidal anti-inflammatories including meloxicam. 9. Patient takes mesalamine. She may continue with her medication. Diet: ADA Activity: Ad angela Time spent managing pt's care (in minutes): 55
[2019-08-09 12:32] VITALS: BP 145/75; TEMP 97
== END 2019-08-09 16:00 | disposition home or self-care (01) | DRG 291 ==
LOC: ER 17:30 → ERHOLD 08-08 01:54 → 2ND 08-08 03:04 → OBSVTOIN 08-08 15:02
PROVIDERS: ADMIT Internal Medicine; ATTEND Family Medicine
DX: I11.0 Hypertensive heart disease with heart failure (principal); J96.21 Acute and chronic respiratory failure with hypoxia; J44.1 Chronic obstructive pulmonary disease with (acute) exacerbation; I50.33 Acute on chronic diastolic (congestive) heart failure; G47.33 Obstructive sleep apnea (adult) (pediatric); E11.9 Type 2 diabetes mellitus without complications; E78.5 Hyperlipidemia, unspecified; K21.9 Gastro-esophageal reflux disease without esophagitis; E66.9 Obesity, unspecified; Z68.39 Body mass index [BMI] 39.0-39.9, adult; Z79.84 Long term (current) use of oral hypoglycemic drugs; Z79.52 Long term (current) use of systemic steroids; Z79.899 Other long term (current) drug therapy; Z20.828 Contact with and (suspected) exposure to other viral communicable diseases; Z98.51 Tubal ligation status; Z90.11 Acquired absence of right breast and nipple; Z87.891 Personal history of nicotine dependence; Z85.3 Personal history of malignant neoplasm of breast
CPT/HCPCS: 36415; 71045; 71275; 80048; 80076; 81003; 82947; 83735; 83880; 84100; 84132; 84443; 84484; 85025; 85379; 85610; 93005; 93307; 94640; 94760; 96365; 96366; 96368; 96375; 99285; G0378; J1650; J1940; J2930; J3475; J7030; J7512; Q9967; U0002

== ENCOUNTER 2020-08-10 07:41 | Day surgery (SDC) | payer OTHER, MEDICARE ==
[2020-08-06 10:23] LABS: Absolute Lymphocytes (CBC) 2.3 K/uL (0.7-4.9); Basophils % 1.1 % (0-1.3); Hematocrit 46.7 % (36.0-45.0); Lymphocytes % 27.6 % (15.3-44.8); MPV 7.8 fL (7.6-11.3)
[2020-08-10] MEDS ORDERED: NA CHLORIDE 0.9% 1,000 ML ONE (08:36)
[2020-08-10] MEDS ORDERED: CEFAZOLIN/SWI 1gm 1 GM/10 ML SYR ONE (08:37)
[2020-08-10] MEDS ORDERED: INSULIN -REGULAR HUMAN 50 UNIT/0.5 ML ML ONE (08:48)
[2020-08-10] MEDS ORDERED: BUPIVACAINE 0.5% PF 10 ML VIAL ONE (09:40)
[2020-08-10] MEDS ORDERED: MIDAZOLAM HCL 2 MG/2 ML INJ ONE ×2 (09:40→09:46)
[2020-08-10] MEDS ORDERED: propofoL 200 MG/20 ML VIAL IV ONE ×3 (09:40→09:46)
[2020-08-10] MEDS ORDERED: LIDOCAINE 1% MPF 5 ML VIAL ONE (09:40)
[2020-08-10] MEDS ORDERED: FENTANYL CITR 100 MCG/2 ML ONE ×2 (09:40→09:46)
[2020-08-10] MEDS ORDERED: LIDOCAINE 1% 20 ML MDV ONE (09:41)
[2020-08-10] MEDS ORDERED: LIDOCAINE 2% MPF 5 ML VIAL ONE (09:46)
[2020-08-10] MEDS ORDERED: KETOROLAC 30 MG/ML INJ ONE (10:10)
[2020-08-10] MEDS ORDERED: Mastisol Adhesive Liq ONE (10:17)
--- NOTE | 2020-08-10 11:26 | OP ---
Date of Procedure: 08/10/2020 Surgeon: Gutierrez Wilburn MD Bluing Oven Tender: None. Preoperative Diagnosis: Right breast cancer. Postoperative Diagnosis: Right breast cancer. Procedure: Removal of left chest Port-A-Cath. Estimated Blood Loss: Minimal. Specimen: Port-A-Cath device. Finding: As above. Anesthesia: General. Complications: None. Disposition: The patient tolerated the procedure in stable condition and taken to Recovery in good g eneral condition. Procedure In Detail: The patient was brought to the OR and placed in supine position. General anest hesia begun. Then, the patient was prepped and draped in the usual sterile fashion. Marcaine 0.5% w as infiltrated locally. A 15-blade was used to make a 3 cm incision over the Port-A-Cath on the left anterior chest. Subcutaneous tissue was divided. Port identified and freed from the surrounding ti ssue with sharp and blunt dissection, removed, and sent to pathology for identification. Wound was i rrigated. Bleeding controlled with cautery. A 3-0 chromic used to approximate the subcutaneous tiss ue and close the skin. Sterile dressing applied. The patient was awakened and taken to Recovery in good general condition. Discharge Note: The patient will go to Day Surgery and home when stable. Disposition: Home. Condition: Stable. Discharge Instructions: Resume home medications and diet. Activity as tolerated. No heavy lifting. Remove outer dressing in 2 days. Shower. Keep wound clean and dry. Keep Steri-Strips on at all t imes. Tylenol No.3 one tablet p.o. q.4 p.r.n. pain. Follow up in my office in 2 weeks. Call for ap pointment. /MODL Voice ID: [id number] Report ID: [id number]
[2020-08-10] MEDS ORDERED: HYDROCODONE/APAP 7.5/325 MG TAB ONE (11:47)
[2020-08-10 12:07] VITALS: BP 137/58; TEMP 97.1; O2SAT 100
== END 2020-08-10 11:50 | disposition home or self-care (01) ==
LOC: OR 07:41
PROVIDERS: ATTEND Surgery
PROC: 0JH60WZ Insertion of Totally Implantable Vascular Access Device into Chest Subcutaneous Tissue and Fascia, Open Approach (ICD-10-PCS; principal; 2020-08-10 09:00)
DX: C50.911 Malignant neoplasm of unspecified site of right female breast (principal)
CPT/HCPCS: 85025; 36415; 82947; 88300; 36561; J2704 ×2; J2250; J0690; J7030; J3010

== ENCOUNTER 2020-08-30 11:23 | Day surgery (SDC) | payer OTHER, MEDICARE ==
--- NOTE | 2020-08-28 13:53 | RAD REPORT ---
EXAM DESCRIPTION: Hilda Glass And Bailey (2 Views)08/28/2020 1:41 pm CLINICAL HISTORY: Preop for cardiac catheterization. Hypertension COMPARISON: 2019 FINDINGS: The lungs appear clear of acute infiltrate. The heart is borderline enlarged IMPRESSION: No acute abnormalities displayed
[2020-08-28 14:02] LABS: Basophils % 1.2 % (0-1.3); Hematocrit 45.8 % (36.0-45.0); Lymphocytes % 29.3 % (15.3-44.8); MPV 7.5 fL (7.6-11.3); RBC Red Blood Cell Count 5.03 M/uL (3.86-4.86)
[2020-08-28 14:15] LABS: Protime INR 0.95
[2020-08-28 14:18] LABS: Potassium 4.1 mmol/L (3.5-5.1)
--- NOTE | 2020-08-29 10:43 | EKG ---
Test Date: 2020-08-28 Test Time: 12:22:13 Commercial Loan Underwriter: JAN MEASUREMENT RESULTS: Intervals: Rate: 58 NM: 152 QRSD: 90 QT: 432 QTc: 424 Slater: P: 58 NM: 152 QRS: 36 T: 53 INTERPRETIVE STATEMENTS: Sinus bradycardia Otherwise normal ECG Compared to ECG 08/07/2019 18:28:40 Sinus rhythm no longer present T-wave abnormality no longer present Electronically Signed On 08-29-20 10:41:51 CDT by Min Barrios
[2020-08-30] MEDS ORDERED: HEPA 1000U/500MLS 2,000 UNIT/1,000 ML BAG IV ONE (12:10)
[2020-08-30] MEDS ORDERED: NA CHLORIDE 0.9% 500 ML ONE (12:28)
[2020-08-30 12:49] VITALS: TEMP 97.9
[2020-08-30] MEDS ORDERED: FENTANYL CITR 100 MCG/2 ML ONE (13:54)
[2020-08-30] MEDS ORDERED: MIDAZOLAM HCL 2 MG/2 ML INJ ONE (13:55)
[2020-08-30] MEDS ORDERED: HYDRALAZINE HCL 20 MG/ML VIAL ONE (14:39)
--- NOTE | 2020-08-30 15:11 | OP ---
Date of Procedure: 08/30/2020 Surgeon: NICHOLAS SANTACRUZ Procedures Performed: 1.Selective coronary angiogram. 2.Left heart catheterization. Indication: Unstable angina with abnormal stress test. Access: Right radial artery 6-English closed with TR band. Complications: None. Bleeding: Less than 10 mL. Description Of Procedure: After risks, benefits, and alternatives were explained, the patient agreed to the procedure and signed informed consent. Then, we accessed the right radial artery using pedia tric micropuncture kit and then took a 5-English Burlison 4.0 into the aortic root, engaged the right cor onary artery and then I tried to engage the left main with a Burlison catheter and could not, and tried JL3.5 and could not engage, and then took left 3.5 and was able to engage. The takeoff wa s close to the right coronary cusp and then took the catheter out and sheath out, and placed TR band with good hemostasis. Findings: 1.Left main is large and normal. 2.LAD; gwtqhkgo-wq-oxciy size and normal. No significant disease with the diagonals either. 3.Left circumflex; moderate size and normal. 4.RCA; large, dominant with mid 40% stenosis. Otherwise, no significant disease. Conclusion: Mild nonobstructive coronary artery disease, mainly the RCA. Recommendations: Aggressive risk factor modification and medical management of coronary artery disea se. /MODL Voice ID: [id number] Report ID: [id number]
[2020-08-30 16:21] VITALS: O2SAT 98
[2020-08-30 16:58] VITALS: BP 128/42
[2020-08-30] MEDS ORDERED: HEPARIN 5000 UNIT/ML 1 ML VIAL IV ONE (18:00)
[2020-08-30] MEDS ORDERED: VERAPAMIL HCL 10 MG/4 ML VIAL IV ONE (18:00)
== END 2020-08-30 17:00 | disposition home or self-care (01) ==
LOC: CCL 11:23
PROVIDERS: ATTEND Internal Medicine
DX: I25.110 Atherosclerotic heart disease of native coronary artery with unstable angina pectoris (principal); I10 Essential (primary) hypertension; E78.5 Hyperlipidemia, unspecified; F17.210 Nicotine dependence, cigarettes, uncomplicated
CPT/HCPCS: 93005; 85025; 80048; 36415; 85610; 82947; 85730; 71046; 93454; C1893; J0360; J1644 ×2; J2250; J3010; J7040; 93458

== ENCOUNTER 2020-12-27 06:38 | Day surgery (SDC) | payer OTHER, MEDICARE ==
[2020-12-27] MEDS ORDERED: NA CHLORIDE 0.9% 1,000 ML ONE (07:12)
[2020-12-27] MEDS ORDERED: ALBUTEROL 2.5 MG/3 ML NEB SOL NEB ONE (07:50)
[2020-12-27] MEDS ORDERED: ALBUTEROL 2.5 MG/3 ML NEB SOL ONE (07:51)
[2020-12-27] MEDS ORDERED: LIDOCAINE 1% MPF 30 ML VIAL ONE (08:01)
[2020-12-27] MEDS ORDERED: propofoL 200 MG/20 ML VIAL IV ONE ×2 (08:01→08:38)
[2020-12-27] MEDS ORDERED: GLYCOPYRROLATE 0.2 MG/ML SYR ONE (08:01)
[2020-12-27 09:37] VITALS: TEMP 97.7; O2SAT 100
[2020-12-27 09:38] VITALS: BP 116/55
--- NOTE | 2020-12-27 11:25 | OP ---
Surgeon: Roderick Goyal MD Procedure Performed: Colonoscopy. Indications For Procedure: History of ulcerative colitis and needs surveillance, history of colon po lyp. Plan For Anesthesia: Monitored anesthesia care. Complexity: High due to the patient's comorbidities and oxygen requirement. Technique: After obtaining informed consent from the patient and explaining risks and complications, which include, but are not limited to bleeding, infection, perforation, and anesthesia complication, the patient was placed in the left lateral position and sedation was given. From then on, a digital rectal exam was performed. Scope inserted into the rectum and carefully guided up till the terminal ileum. Then, the scope was carefully withdrawn while carefully examining the colonic mucosa. The c ecum was identified by the appendiceal orifice and ileocecal valve. Scope withdrawal time was 9 elkin sari. Quality of prep was good. Findings: The entire colon was quite redundant. There appeared to be mild decreased vascularity see n in the entire colon; however, without any significant inflammation that would indicate active colit is. Segmental biopsies taken from all colonic segments. The terminal ileum appeared normal. Retrof lexion revealed grade 2 internal hemorrhoids. Complications: None. Tolerance To Anesthesia: Excellent. Postoperative Diagnosis: Redundant colon, ulcerative colitis appears to be well controlled. Plan: Continue current management. Repeat colonoscopy in 2 years. Follow up in the GI Clinic. Brittani it pathology results. US/MODL Voice ID: [id number] Report ID: [id number]
== END 2020-12-27 09:30 | disposition home or self-care (01) ==
LOC: OR 06:38
PROVIDERS: ATTEND Internal Medicine Gastroenterology
PROC: 0DBL8ZX Excision of Transverse Colon, Via Natural or Artificial Opening Endoscopic, Diagnostic (ICD-10-PCS; 2020-12-27)
PROC: 0DBN8ZX Excision of Sigmoid Colon, Via Natural or Artificial Opening Endoscopic, Diagnostic (ICD-10-PCS; 2020-12-27)
PROC: 0DBP8ZX Excision of Rectum, Via Natural or Artificial Opening Endoscopic, Diagnostic (ICD-10-PCS; 2020-12-27)
PROC: 0DBM8ZX Excision of Descending Colon, Via Natural or Artificial Opening Endoscopic, Diagnostic (ICD-10-PCS; 2020-12-27)
PROC: 0DBH8ZX Excision of Cecum, Via Natural or Artificial Opening Endoscopic, Diagnostic (ICD-10-PCS; 2020-12-27)
PROC: 0DBK8ZX Excision of Ascending Colon, Via Natural or Artificial Opening Endoscopic, Diagnostic (ICD-10-PCS; principal; 2020-12-27 08:00)
DX: Z86.010 Personal history of colon polyps (principal); K51.90 Ulcerative colitis, unspecified, without complications; K64.8 Other hemorrhoids; Q43.8 Other specified congenital malformations of intestine; Z20.822 Contact with and (suspected) exposure to COVID-19
CPT/HCPCS: 82947; 88305; 45380; U0002; U0003; J2704 ×2; J7030

== ENCOUNTER 2021-01-21 15:01 | Emergency (ER) | payer OTHER ==
--- OUTSIDE RECORDS SUMMARY | 2021-01-21 15:03 | XMS REPORT | Continuity of Care Document ---
:1950 Author Organization [facility] Address [address] [place] [address] Dr. Zambrano [address] [place] [id number] Care Team Providers Name Role Phone Unavailable Unavailable Unavailable Problems This patient has no known problems. Allergies, Adverse Reactions, Alerts This patient has no known allergies or adverse reactions. Medications This patient has no known medications. Procedures This patient has no known procedures. Results Test Description Test Time Test Comments Results Result Comments Source SARS-COV2/RT-PCR ([facility]) 2019-08-08 16:11:00 Test Item Value Reference Range Interpretation Comme nts SARS-COV2/RT-PCR (test code = 2709918) Not Detected Not Detected, N egative SARS-COV-2 PERFORMING LAB (test code = [facility] [id number]) Negative results do not preclude SARS-CoV-2 infection and should not be used as the sole basis for patient management decisions. Negative results must be combined with clinical observations, patient history, and epidemiological information. A false negative result may occur if a specimen is improperly collected, transported or handled.The limit of detection for this assay is 250 copies/mL.This SARS CoV-2 test is a rapid, real-time RT-PCR test intended for the qualitative detection of nucleic acid from SARS-CoV-2 in a nasopharyngeal swab specimen collected from individuals suspected of COVID-19 by their healthcare provider.This test has not been Food and Drug Administration (FDA) cleared or approved and has been authorized by FDA under an Emergency Use Authorization (EUA). This EUA will be effective until the declaration that circumstances exist justifying the authorization of the emergency use of in vitro diagnostic tests for detection and/or diagnosis of COVID-19 is terminated under Section 564(b)(2) of the Act or the EUA is revoked under Section 564(g) of the Act.Fact Sheet for Healthcare Pro viders:https://www.[employer]/Documents/Xpert%20Xpress%20SARS%20CoV-2/Fact%20Sh eets/302-3802%91ZQYS-TVZ-6%20HEALTHCARE%20PROVIDERS%20FACT%20SHEET.pdfFact Sheet for Healthcare Patients:https://www.[employer]/Documents/Xpert%20Xpress%20SARS%20CoV-2/Fact%20Sheets/302-3801%20SARS-COV -2%20PATIENT%20FACT%20SHEET.pdfPerforming Laboratory:[facility] [place] [address]
[2021-01-21] MEDS ORDERED: ALBUTEROL 2.5 MG/3 ML NEB SOL ONE (18:03)
[2021-01-21] MEDS ORDERED: METHYLPREDNISOLONE 125 MG INJ ONE (18:03)
[2021-01-21] MEDS ORDERED: IPRATROPIUM BROM 0.5MG/2.5ML ONE (18:03)
[2021-01-21 18:08] LABS: Absolute Lymphocytes (CBC) 2.6 K/uL (0.7-4.9); Basophils % 0.9 % (0-1.3); Hematocrit 47.4 % (36.0-45.0); Lymphocytes % 29.6 % (15.3-44.8); MPV 7.2 fL (7.6-11.3); Protime INR 1.02; RBC Red Blood Cell Count 5.18 M/uL (3.86-4.86)
--- NOTE | 2021-01-21 18:36 | RAD REPORT ---
EXAM DESCRIPTION: RAD - Chest Single View - 01/21/2021 6:28 pm CLINICAL HISTORY: DYSPNEA Chest pain. COMPARISON: Chest Pa And Lat (2 Views) dated 08/28/2020; Chest Single View dated 08/07/2019; Chest Sin gle View dated 07/14/2019; Chest Pa And Lat (2 Views) dated 05/10/2019; Bone Imaging Whole Body dated FINDINGS: Portable technique limits examination quality. The lungs are grossly clear. The heart is normal in size. No displaced fractures. IMPRESSION: No acute intrathoracic process suspected.
[2021-01-21 18:38] LABS: ALT/SGPT 27 U/L (12-78); AST/SGOT 12 U/L (15-37); Albumin 3.6 g/dL (3.4-5.0); Alkaline Phosphatase 134 U/L (45-117); BUN Blood Urea Nitrogen 13 mg/dL (7-18); Bicarbonate 31 mmol/L (21-32); Bilirubin Direct 0.1 mg/dL (0-0.2); Bilirubin Total 0.3 mg/dL (0.2-1.0); Glucose Level 146 mg/dL (74-106); NT PRO-BNP 32 pg/mL (<125); Potassium 3.9 mmol/L (3.5-5.1); Protein, Total 7.7 g/dL (6.4-8.2); Sodium Level 140 mmol/L (136-145); Troponin (Emerg Dept Use Only) < 0.02 ng/mL (0.0-0.045)
--- NOTE | 2021-01-21 18:50 | ER ---
Nurse's Notes [facility] Name: Marnie Deluca Age: 70 yrs Sex: Female : 1950 Arrival Date: 01/21/2021 Time: 15:04 Bed 13 Private MD: Mani Encarnacion R Diagnosis: COPD/ Chronic obstructive pulmonary disease with (acute) exacerbation Presentation: 01/21 15:07 Chief complaint: Patient states: cough and congestion x3 days; on home 2lpm. 5 Coronavirus screen: Vaccine status: Patient reports receiving the 2nd dose of the covid vaccine. Ebola Screen: Patient negative for fever greater than or equal to 101.5 degrees Fahrenheit, and additional compatible Ebola Virus Disease symptoms Patient denies exposure to infectious person. Patient denies travel to an Ebola-affected area in the 21 days before illness onset. Initial Sepsis Screen: Does the patient meet any 2 criteria? RR > 20 per min. Does the patient have a suspected source of infection? Yes: Productive cough/pneumonia. Risk Assessment: Do you want to hurt yourself or someone else? Patient reports no desire to harm self or others. Onset of symptoms was January 18, 2021. 15:07 Method Of Arrival: Ambulatory [facility] 15:07 Acuity: KODY 3 5 Triage Assessment: 15:13 General: Appears uncomfortable, Behavior is calm, cooperative, appropriate for age. 5 Pain: Denies pain. Respiratory: Airway is patent Trachea midline Respiratory effort is even, Respiratory pattern is regular, symmetrical, Breath sounds with crackles. Historical: - PMHx: 15:12 Cancer, Breast; COPD; Diabetes - NIDDM; Hypertension; jh5 - Immunization history:: Adult Immunizations up to date. - Social history:: Smoking status: Patient reports the use of cigarette tobacco products, smokes one pack cigarettes per day. Screenin:13 Abuse screen: Denies threats or abuse. Denies injuries from another. Nutritional [facility] screening: No deficits noted. Tuberculosis screening: No symptoms or risk factors identified. Fall Risk None identified. Assessment: 18:24 General: Appears in no apparent distress. comfortable, Behavior is calm, cooperative, jd3 appropriate for age. Pain: Denies pain. Neuro: Level of Consciousness is awake, alert, obeys commands, Oriented to person, place, time, situation. Cardiovascular: Denies chest pain, Capillary refill < 3 seconds Patient's skin is warm and dry. Rhythm is regular. Respiratory: Reports shortness of breath "It just feels like I can't get it all back up after breathing in." Airway is patent Respiratory effort is even, unlabored, Respiratory pattern is regular, symmetrical. GI: No signs and/or symptoms were reported involving the gastrointestinal system. : No signs and/or symptoms were reported regarding the genitourinary system. EENT: No signs and/or symptoms were reported regarding the EENT system. Derm: Skin is intact, Skin is dry, Skin is normal, Skin temperature is warm. Musculoskeletal: Circulation, motion, and sensation intact. Range of motion:. 19:31 General: Cleared for discharge to home by the provider.. sv1 Vital Signs: 15:07 BP 154 / 70; Pulse 71; Resp 22; Temp 98.7; Pulse Ox 93% ; Weight 99.79 kg; Height 5 ft. jh5 8 in. (172.72 cm); 18:26 Pulse 72; Resp 15 S; Pulse Ox 99% on Nebulizer Mask; jd3 19:30 BP 122 / 54; Pulse 78; Resp 21; Temp 98.1; Pulse Ox 93% 2 lpm ; sv1 15:07 Body Mass Index 33.45 (99.79 kg, 172.72 cm) 5 ED Course: 15:04 Patient arrived in ED. mr 15:05 Mani Encarnacion MD is Private Physician. mr 15:12 Triage completed. jh5 17:02 [facility] jr8 17:02 Mayco Shafer MD is Attending Physician. jr8 17:05 Alvin Ren RN is Primary Nurse. jd3 18:24 Inserted saline lock: 22 gauge in left antecubital area, using aseptic technique. Blood jd3 collected. 18:25 Arm band placed on. jd3 18:25 Patient has correct armband on for positive identification. Bed in low position. Call jd3 light in reach. Side rails up X 1. Adult w/ patient. facilities maintenance supervisor on. Pulse ox on. NIBP on. 18:28 XRAY Chest (1 view) In Process Unspecified. EDMS 18:49 Mani Encarnacion MD is Referral Physician. jr8 19:31 No provider procedures requiring assistance completed. IV discontinued. sv1 Administered Medications: 18:23 Drug: SOLU-Medrol (methylPrednisoLONE) 125 mg Route: IVP; Site: left antecubital; jd3 19:33 Follow up: Response: Wheezing diminished sv1 18:24 Drug: Albuterol - atroVENT (ipratropium) (3:1) (2.5 mg - 0.5 mg) 3 ml Route: Nebulizer; jd3 19:33 Follow up: Response: No adverse reaction; Wheezing diminished sv1 Outcome: 18:49 Discharge ordered by . jrBryce 19:31 Discharged to home ambulatory. sv1 19:31 Condition: improved 19:34 Discharge instructions given to patient, family, Demonstrated understanding of sv1 19:35 Patient left the ED. sv1 Signatures: Dispatcher [employer] Regi Townsend RoseannLambert culp PA PA jr8 Alvin Ren RN RN jd3 Rees, Jessica, RN RN jh5 Goldy Rios RN RN sv1
--- NOTE | 2021-01-21 18:50 | EDPHYS ---
Physician Documentation [facility] Name: Marnie Deluca Age: 70 yrs Sex: Female : 1950 Arrival Date: 01/21/2021 Time: 15:04 Bed 13 Private MD: Mani Encarnacion R ED Physician Mayco Shafer HPI: 01/21 18:19 This 70 yrs old Female presents to ER via Ambulatory with complaints of Congestion. jr8 18:19 This is a 70-year-old female patient with a history of chronic obstructive pulmonary jr8 disease on home oxygen that presented to the emergency room with 7 days of congestion. Now for the past 3 days has had increased shortness of breath with larger fluctuations in her home oxygen saturation. Patient stated that she currently does not have any breathing treatments at home. Denies any other complaints at this time.. Historical: - PMHx: 15:12 Cancer, Breast; COPD; Diabetes - NIDDM; Hypertension; jh5 - Immunization history:: Adult Immunizations up to date. - Social history:: Smoking status: Patient reports the use of cigarette tobacco products, smokes one pack cigarettes per day. ROS: 18:19 Eyes: Negative for injury, pain, redness, and discharge, ENT: Negative for injury, jr8 pain, and discharge, Neck: Negative for injury, pain, and swelling, Cardiovascular: Negative for chest pain, palpitations, and edema, Abdomen/GI: Negative for abdominal pain, nausea, vomiting, diarrhea, and constipation, Back: Negative for injury and pain, MS/Extremity: Negative for injury and deformity, Skin: Negative for injury, rash, and discoloration. 18:19 Respiratory: Positive for dyspnea on exertion, shortness of breath, wheezing. Exam: 18:19 Constitutional: This is a well developed, well nourished patient who is awake, alert, jr8 and in no acute distress. Cardiovascular: Regular rate and rhythm with a normal S1 and S2. No gallops, murmurs, or rubs. Normal PMI, no JVD. No pulse deficits. Abdomen/GI: Soft, non-tender, with normal bowel sounds. No distension or tympany. No guarding or rebound. No evidence of tenderness throughout. Back: No spinal tenderness. No costovertebral tenderness. Full range of motion. Skin: Warm, dry with normal turgor. Normal color with no rashes, no lesions, and no evidence of cellulitis. MS/ Extremity: Pulses equal, no cyanosis. Neurovascular intact. Full, normal range of motion. Neuro: Awake and alert, GCS 15, oriented to person, place, time, and situation. Cranial nerves II-XII grossly intact. Motor strength 5/5 in all extremities. Sensory grossly intact. Cerebellar exam normal. Normal gait. 18:19 Respiratory: the patient does not display signs of respiratory distress, Respirations: normal, symetrical, no use of accessory muscles, no grunting, no evidence of nasal flaring, no appreciated paradoxical movements, no prolonged exhalations, no pursed lip breathing, no retractions, no shallow respirations, no splinting, no tachypnea, Breath sounds: wheezing: expiratory that is moderate, is heard diffusely. Vital Signs: 15:07 BP 154 / 70; Pulse 71; Resp 22; Temp 98.7; Pulse Ox 93% ; Weight 99.79 kg; Height 5 ft. jh5 8 in. (172.72 cm); 18:26 Pulse 72; Resp 15 S; Pulse Ox 99% on Nebulizer Mask; jd3 19:30 BP 122 / 54; Pulse 78; Resp 21; Temp 98.1; Pulse Ox 93% 2 lpm ; sv1 15:07 Body Mass Index 33.45 (99.79 kg, 172.72 cm) jh5 MDM: 17:02 Patient medically screened. jr8 18:41 Differential diagnosis: Bronchitis CHF exacerbation, Chronic Obstructive Pulmonary jr8 Disease pneumonia, pulmonary edema, Sepsis Unstable Angina. Data reviewed: vital signs, nurses notes, lab test result(s), EKG, radiologic studies, plain films. Data interpreted: Pulse oximetry: on 2L(s) per nasal canula, is 93 %. Interpretation: acceptable. Counseling: I had a detailed discussion with the patient and/or guardian regarding: the historical points, exam findings, and any diagnostic results supporting the discharge/admit diagnosis, lab results, radiology results, the need for outpatient follow up, a family practitioner, to return to the emergency department if symptoms worsen or persist or if there are any questions or concerns that arise at home. 18:48 ED course: Discussed with patient that there is no signs of pneumonia or cardiac jr8 failure. Examination reveals diffuse wheezing and in the presence of her chest x-ray is most likely chronic obstructive pulmonary disease with exacerbation. Patient overall is feeling better. No other acute lab abnormalities. Will prescribe her steroids and albuterol ampules for at home. If she would acutely get worse to come back otherwise she needs to follow-up with her primary care in the next 1 to 2 days. Patient good with this at this time.. 01/21 17:42 Order name: Basic Metabolic Panel; Complete Time: 18:41 01/21 17:42 Order name: CBC with Diff; Complete Time: 18:21 01/21 17:42 Order name: LFT's; Complete Time: 18:41 01/21 17:42 Order name: Magnesium; Complete Time: 18:41 01/21 17:42 Order name: NT PRO-BNP; Complete Time: 18:41 01/21 17:42 Order name: PT-INR; Complete Time: 18:11 01/21 17:42 Order name: Troponin (emerg Dept Use Only); Complete Time: 18:41 01/21 17:42 Order name: XRAY Chest (1 view); Complete Time: 18:41 01/21 17:42 Order name: EKG; Complete Time: 17:43 01/21 17:42 Order name: Cardiac monitoring; Complete Time: 17:45 01/21 17:42 Order name: EKG - Nurse/Tech; Complete Time: 18:23 01/21 17:42 Order name: IV Saline Lock; Complete Time: 18:01 01/21 17:42 Order name: Labs collected and sent; Complete Time: 18:01 01/21 17:42 Order name: O2 Per Protocol; Complete Time: 17:45 01/21 17:42 Order name: O2 Sat Monitoring; Complete Time: 17:44 Administered Medications: 18:23 Drug: SOLU-Medrol (methylPrednisoLONE) 125 mg Route: IVP; Site: left antecubital; jd3 19:33 Follow up: Response: Wheezing diminished sv1 18:24 Drug: Albuterol - atroVENT (ipratropium) (3:1) (2.5 mg - 0.5 mg) 3 ml Route: Nebulizer; jd3 19:33 Follow up: Response: No adverse reaction; Wheezing diminished sv1 Disposition: 01/22 07:18 Co-signature as Attending Physician, Mayco Shafer MD I agree with the assessment and rn plan of care. Attestation: The patient's history, exam findings, diagnostics, and a summary of any interventions or procedures was reviewed in detail with Lambert SINHA. Disposition Summary: 01/21/21 18:49 Discharge Ordered Location: Home jr8 Problem: new jr8 Symptoms: have improved jr8 Condition: Stable jr8 Diagnosis - COPD/ Chronic obstructive pulmonary disease with (acute) exacerbation jr8 Followup: jr8 - With: Mani Encarnacion MD - When: 2 - 3 days - Reason: Recheck today's complaints, Continuance of care, Re-evaluation by your physician Discharge Instructions: - Discharge Summary Sheet jr8 - Chronic Obstructive Pulmonary Disease jr8 Forms: - Medication Reconciliation Form jr8 - Thank You Letter jr8 - Antibiotic Education jr8 - Prescription Opioid Use jr8 Prescriptions: - Prednisone 20 mg Oral Tablet - take 1 tablet by ORAL route once daily for 5 days; 5 tablet; Refills: 0, jr8 Product Selection Permitted - Albuterol Sulfate 2.5 mg /3 mL (0.083 %) Inhalation Solution for Nebulization - inhale 1 unit by NEBULIZATION route every 8 hours As needed; 1 box; Refills: 0, jr8 Product Selection Permitted - ipratropium bromide 0.02 % Inhalation solution - inhale 2.5 milliliter by INHALATION route 3 times per day As needed; 1 box; jr8 Refills: 0, Product Selection Permitted Signatures: Dispatcher [employer] EDMayco Aparicio MD MD rn Roszak, Josh, PA PA jr8 Alvin Ren RN RN jd3 Charu Guzman RN RN jh5 Goldy Rios RN sv1
[2021-01-21 19:51] VITALS: BP 122/54; TEMP 98.1; O2SAT 93
--- NOTE | 2021-01-22 12:28 | EKG ---
Test Date: 2021-01-21 Test Time: 18:11:49 Home Improvement Advisor: АЛЕКСАНДР MEASUREMENT RESULTS: Intervals: Rate: 71 OK: 146 QRSD: 84 QT: 410 QTc: 445 [place]: P: 75 OK: 146 QRS: 44 T: 81 INTERPRETIVE STATEMENTS: Normal sinus rhythm Possible Anterior infarct, age undetermined Abnormal ECG Compared to ECG 08/28/2020 12:22:13 Myocardial infarct finding now present Sinus bradycardia no longer present Electronically Signed On 01-22-21 12:25:48 CHECKOUT SUPERVISOR by Min Barrios
== END 2021-01-21 19:35 | disposition home or self-care (01) ==
LOC: ER 15:01
DX: J44.1 Chronic obstructive pulmonary disease with (acute) exacerbation (principal); I10 Essential (primary) hypertension; F17.210 Nicotine dependence, cigarettes, uncomplicated
CPT/HCPCS: 93005; 85025; 80048; 36415; 83735; 85610; 80076; 84484; 83880; 71045; 94640; 96374; 99285; J2930

== ENCOUNTER 2022-03-24 19:20 | Observation (INO) | payer OTHER, MEDICARE ==
--- NOTE | 2022-03-24 22:25 | RAD REPORT ---
EXAM DESCRIPTION: [facility]24[facility]2022 10:13 pm CLINICAL HISTORY: COPD. Congestion. COMPARISON: Chest Single View dated 01/21/2021; Chest Pa And Lat (2 Views) dated 08/28/2020; Chest Si ngle View dated 08/07/2019; Chest Single View dated 07/14/2019 TECHNIQUE: Portable AP views of the chest. FINDINGS: The lungs are clear. Stable left basilar atelectasis. No pneumothorax or effusion. The car diomediastinal contours are unremarkable. IMPRESSION: No acute cardiopulmonary process.
[2022-03-24 22:39] LABS: Absolute Lymphocytes (CBC) 3.1 K/uL (0.7-4.9); Lymphocytes % 33.9 % (15.3-44.8); MCV 92.4 fL (80-100); MPV 7.2 fL (7.6-11.3); RBC Red Blood Cell Count 4.76 M/uL (3.86-4.86)
[2022-03-24 22:49] LABS: ALT/SGPT 26 U/L (13-56); AST/SGOT 9 U/L (15-37); Albumin 3.4 g/dL (3.4-5.0); Alkaline Phosphatase 117 U/L (45-117); BUN Blood Urea Nitrogen 20 mg/dL (7-18); Bicarbonate 26 mmol/L (21-32); Bilirubin Total 0.4 mg/dL (0.2-1.0); Glomerular Filtration Rate 76 ml/min (=/>90); Glucose Level 204 mg/dL (74-106); Magnesium 2.2 mg/dL (1.6-2.4); NT PRO-BNP 54 pg/mL (<125); Potassium 3.9 mmol/L (3.5-5.1); Protein, Total 7.3 g/dL (6.4-8.2); Sodium Level 134 mmol/L (136-145); Troponin High Sensitivity 5.8 pg/mL (<58.9)
[2022-03-24] MEDS ORDERED: IPRATROPIUM BROM 0.5MG/2.5ML ONE (22:50)
[2022-03-24] MEDS ORDERED: LEVALBUTEROL 1.25 MG/3 ML NEB ONE ×2 (22:50→23:54)
[2022-03-24] MEDS ORDERED: METHYLPREDNISOLONE 125 MG INJ ONE (22:50)
[2022-03-24] MEDS ORDERED: Levofloxacin500mg IV 500 MG/100 ML BAG IV ONE (22:50)
[2022-03-24 22:53] LABS: Protime INR 0.95
[2022-03-24 22:57] LABS: Bilirubin Direct < 0.1 mg/dL (0-0.2)
--- NOTE | 2022-03-24 23:11 | EDPHYS ---
Physician Documentation [facility] Name: Marnie Deluca Age: 71 yrs Sex: Female : 1950 Arrival Date: 03/24/2022 Time: 19:23 Bed 13 Private MD: ED Physician Alonso Malcolm HPI: 03/24 23:05 This 71 yrs old Female presents to ER via Ambulatory with complaints of shai Cough, Congestion, Shortness Of Breath. 23:05 The patient or guardian reports airway noise, cough, difficulty breathing, flu shai symptoms, arthralgias, low-grade fever, myalgias. Onset: The symptoms/episode began/occurred 2 day(s) ago. Severity of symptoms: At their worst the symptoms were mild, moderate, in the emergency department the symptoms are unchanged. Modifying factors: The symptoms are alleviated by inhaler, albuterol, nebulizer treatment, prescription meds, Xopenex nebulizer, steroids, prednisone, the symptoms are aggravated by exertion, talking. Associated signs and symptoms: Pertinent positives: rhinorrhea. The patient has experienced similar episodes in the past, multiple times. Historical: - Allergies: 20:26 No Known Allergies; [facility] - PMHx: 20:26 Cancer, Breast; COPD; Diabetes - NIDDM; Hypertension; [facility] - Immunization history:: Adult Immunizations up to date. - Social history:: Smoking status: Patient reports the use of cigarette tobacco products, smokes one pack cigarettes per day. ROS: 23:06 Constitutional: Negative for fever, chills, and weight loss, Eyes: Negative for injury, shai pain, redness, and discharge, ENT: Negative for injury, pain, and discharge, Neck: Negative for injury, pain, and swelling, Cardiovascular: Negative for chest pain, palpitations, and edema, Abdomen/GI: Negative for abdominal pain, nausea, vomiting, diarrhea, and constipation, Back: Negative for injury and pain, : Negative for injury, bleeding, discharge, and swelling, MS/Extremity: Negative for injury and deformity, Skin: Negative for injury, rash, and discoloration, Neuro: Negative for headache, weakness, numbness, tingling, and seizure, Psych: Negative for depression, anxiety, suicide ideation, homicidal ideation, and hallucinations, Allergy/Immunology: Negative for hives, rash, and allergies, Endocrine: Negative for neck swelling, polydipsia, polyuria, polyphagia, and marked weight changes, Hematologic/Lymphatic: Negative for swollen nodes, abnormal bleeding, and unusual bruising. 23:06 Respiratory: Positive for cough, with no reported sputum, shortness of breath, at rest. wheezing, inspiratory, expiratory. 23:06 MS/extremity: Negative for decreased range of motion, swelling, tenderness. Exam: 23:06 Constitutional: This is a well developed, well nourished patient who is awake, alert, shai and in no acute distress. Head/Face: Normocephalic, atraumatic. Eyes: Pupils equal round and reactive to light, extra-ocular motions intact. Lids and lashes normal. Conjunctiva and sclera are non-icteric and not injected. Cornea within normal limits. Periorbital areas with no swelling, redness, or edema. ENT: Nares patent. No nasal discharge, no septal abnormalities noted. Tympanic membranes are normal and external auditory canals are clear. Oropharynx with no redness, swelling, or masses, exudates, or evidence of obstruction, uvula midline. Mucous membranes moist. Neck: Trachea midline, no thyromegaly or masses palpated, and no cervical lymphadenopathy. Supple, full range of motion without nuchal rigidity, or vertebral point tenderness. No Meningismus. Chest/axilla: Normal chest wall appearance and motion. Nontender with no deformity. No lesions are appreciated. Cardiovascular: Regular rate and rhythm with a normal S1 and S2. No gallops, murmurs, or rubs. Normal PMI, no JVD. No pulse deficits. Abdomen/GI: Soft, non-tender, with normal bowel sounds. No distension or tympany. No guarding or rebound. No evidence of tenderness throughout. Back: No spinal tenderness. No costovertebral tenderness. Full range of motion. Female : Normal external genitalia. Skin: Warm, dry with normal turgor. Normal color with no rashes, no lesions, and no evidence of cellulitis. MS/ Extremity: Pulses equal, no cyanosis. Neurovascular intact. Full, normal range of motion. Neuro: Awake and alert, GCS 15, oriented to person, place, time, and situation. Cranial nerves II-XII grossly intact. Motor strength 5/5 in all extremities. Sensory grossly intact. Cerebellar exam normal. Normal gait. Psych: Awake, alert, with orientation to person, place and time. Behavior, mood, and affect are within normal limits. 23:06 Respiratory: mild respiratory distress is noted, moderate respiratory distress is noted, Respirations: labored breathing, that is mild, Breath sounds: decreased breath sounds, that are mild, rhonchi, that are mild, stridor, is not appreciated, + upper airway congestion. wheezing: inspiratory expiratory Respiratory rate: 03/25 00:26 ECG was reviewed by the Attending Physician. [facility] Vital Signs: 03/24 20:23 BP 138 / 54; Pulse 78; Resp 22; Temp 98.7; Pulse Ox 92% on 3 lpm NC; Weight 105.69 kg; [facility] Height 5 ft. 9 in. (175.26 cm); Pain 0/10; 22:30 BP 130 / 74; Pulse 70; Resp 20; Pulse Ox 95% on 2 lpm NC; 4 23:30 BP 116 / 64; Pulse 81; Resp 20; Pulse Ox 96% on Nebulizer Mask; [facility] 03/25 00:15 BP 134 / 71; Pulse 80; Resp 18; Pulse Ox 91% on R/A; 4 01:45 BP 127 / 69; Pulse 102; Resp 22; Pulse Ox 95% on R/A; [facility] 03/24 20:23 Body Mass Index 34.41 (105.69 kg, 175.26 cm) [facility] MDM: 03/24 21:01 Patient medically screened. [facility] 23:08 Differential diagnosis: Anemia asthma, Bronchitis CHF exacerbation, Chronic Obstructive shai Pulmonary Disease Myocardial Infarction pneumonia, Pneumothorax pulmonary edema, reactive airway disease, Sepsis Unstable Angina. Antibiotic administration: Levaquin given. Differential Diagnosis: Obstructed Airway Bronchitis Influenza Upper Respiratory Infection Asthma Exacerbation Viral Syndrome Pneumonia Tracheal Injury. Immunization status: Pneumococcal vaccine: within last 5 years. Influenza vaccine: within last 5 years. Data reviewed: vital signs, nurses notes, lab test result(s), EKG, radiologic studies, plain films. Consideration of Admission/Observation Patient was admitted/placed on observation. Escalation of care including admission/observation considered. I considered the following discharge prescriptions or medication management in the emergency department Medications were administered in the Emergency Department. See MAR. Test considered but Not performed: CT: ct chest ro pe. Historians other than the Patient: Spouse/Significant Other: , knowledgable. Care significantly affected by the following chronic conditions: Diabetes, Hypertension, Chronic Obstructive Pulmonary Disease. 03/24 21:04 Order name: Basic Metabolic Panel [facility] 03/24 21:04 Order name: CBC with Diff [facility] 03/24 21:04 Order name: LFT's [facility] 03/24 21:04 Order name: Magnesium [facility] 03/24 21:04 Order name: NT PRO-BNP [facility] 03/24 21:04 Order name: PT-INR [facility] 03/24 21:04 Order name: Troponin HS [facility] 03/24 21:04 Order name: Blood Culture Adult (2) [facility] 03/24 21:04 Order name: Lactate w/ 2H reflex if indic. [facility] 03/24 22:19 Order name: COVID-19/FLU A+B jb4 03/24 22:41 Order name: CBC with Automated Diff; Complete Time: 22:59 EDMS 03/24 22:52 Order name: Lactate w/ 2H reflex if indic.; Complete Time: 22:59 EDMS 03/24 22:54 Order name: Protime (+INR); Complete Time: 22:59 EDMS 03/24 22:57 Order name: Basic Metabolic Panel; Complete Time: 22:59 EDMS 03/24 22:57 Order name: Liver (Hepatic) Function; Complete Time: 22:59 EDMS 03/24 22:57 Order name: Troponin High Sensitivity; Complete Time: 22:59 EDMS 03/24 22:57 Order name: NT PRO-BNP; Complete Time: 22:59 EDMS 03/24 22:57 Order name: Magnesium; Complete Time: 22:59 EDMS 03/24 23:37 Order name: COVID-19/FLU A+B; Complete Time: 23:47 EDMS 03/25 05:03 Order name: CBC with Automated Diff EDMS 03/25 05:30 Order name: Hemoglobin A1c EDMS 03/25 05:33 Order name: Basic Metabolic Panel EDMS 03/25 05:33 Order name: Phosphorus EDMS 03/25 05:33 Order name: Lipid Profile EDMS 03/25 05:33 Order name: Magnesium EDMS 03/25 05:33 Order name: Thyroid Stimulating Hormone EDMS 03/25 07:45 Order name: Glucose, Ancillary Testing EDMS 03/25 10:30 Order name: Glucose, Ancillary Testing EDMS 03/25 11:41 Order name: Glucose, Ancillary Testing EDMS 03/25 12:25 Order name: Glucose, Ancillary Testing EDMS 03/24 21:04 Order name: XRAY Chest (1 view) [facility] 03/24 21:04 Order name: EKG; Complete Time: 21:05 [facility] 03/24 21:04 Order name: Cardiac monitoring; Complete Time: 00:19 [facility] 03/24 21:04 Order name: EKG - Nurse/Tech; Complete Time: 00:19 [facility] 03/24 21:04 Order name: IV Saline Lock; Complete Time: 00:19 [facility] 03/24 21:04 Order name: Labs collected and sent; Complete Time: 00:19 [facility] 03/24 21:04 Order name: O2 Per Protocol; Complete Time: 00:20 [facility] 03/24 21:04 Order name: O2 Sat Monitoring; Complete Time: 00:19 [facility] 03/24 22:26 Order name: RAD; Complete Time: 22:59 EDMS 03/25 13:05 Order name: Glucose, Ancillary Testing EDMS EC/14 00:26 Rate is 73 beats/min. Rhythm is regular. QRS Hammett is Normal. MD interval is normal. QRS shai interval is normal. QT interval is normal. No Q waves. T waves are Normal. No ST changes noted. Clinical impression: Normal ECG and No evidence of ischemia. Interpreted by me. Reviewed by me. Administered Medications: 03/24 22:53 Drug: levofloxacin 500 mg Volume: 100 ml; Route: IVPB; Infused Over: 60 mins; Site: [facility] left antecubital; 22:54 Drug: SOLU-Medrol (methylPrednisoLONE) 125 mg Route: IVP; Site: left antecubital; 4 22:54 Drug: Xopenex (levalbuterol) 3.75 mg Route: Inhalation; jb4 22:54 Drug: AtroVENT (ipratropium) Aerosol 0.5 mg Route: Inhalation; jb4 03/25 00:00 Drug: Decadron - Dexamethasone 10 mg Route: IVP; Site: left antecubital; jb4 00:00 Drug: Pepcid (famotidine) 20 mg Route: IVP; Site: left antecubital; jb4 00:00 Drug: Xopenex (levalbuterol) 1.25 mg Route: Inhalation; jb4 Disposition Summary: 03/24/22 23:11 Hospitalization Ordered Hospitalization Status: Inpatient Admission shai Provider: Ziyad Baires cha Condition: Fair shai Problem: new shai Symptoms: have improved shai Bed/Room Type: Standard shai Location: [facility] ER HOLD(03/24/22 23:50) Room Assignment: ERHOLD-(03/24/22 23:50) Diagnosis - COPD/ Chronic obstructive pulmonary disease with (acute) exacerbation shai - Tobacco abuse counseling shai - Tobacco use shai - Hypoxemia shai Forms: - Medication Reconciliation Form shai - SBAR form shai Signatures: Dispatcher [employer] EDUte Brown RN RN Alonso Callahan MD MD cha Bryson, James RN RN jb4 Charu Guzman RN RN jh5 Arcelia Bridges PA-C PANimisha [id number] Corrections: (The following items were deleted from the chart) 03/24 23:50 23:11 Telemetry/MedSurg (Inpatient) [facility] 23:50 23:11 shai
--- NOTE | 2022-03-24 23:11 | ER ---
Nurse's Notes [facility] Name: Marnie Deluca Age: 71 yrs Sex: Female : 1950 Arrival Date: 03/24/2022 Time: 19:23 Bed 13 Private MD: Diagnosis: COPD/ Chronic obstructive pulmonary disease with (acute) exacerbation;Tobacco abuse counseling;Tobacco use;Hypoxemia Presentation: 03/24 20:23 Chief complaint: Patient states: 5 days of congestion, runny nose, I have COPD but its jh5 just getting worse. I am not always on oxygen but these last couple days i need it. Coronavirus screen: Vaccine status: Patient reports receiving the 2nd dose of the covid vaccine. Client denies travel out of the [place] in the last 14 days. Ebola Screen: Patient negative for fever greater than or equal to 101.5 degrees Fahrenheit, and additional compatible Ebola Virus Disease symptoms Patient denies exposure to infectious person. Patient denies travel to an Ebola-affected area in the 21 days before illness onset. Initial Sepsis Screen: Does the patient meet any 2 criteria? No. Patient's initial sepsis screen is negative. Does the patient have a suspected source of infection? No. Patient's initial sepsis screen is negative. Risk Assessment: Do you want to hurt yourself or someone else? Patient reports no desire to harm self or others. 20:23 Method Of Arrival: Ambulatory [facility] 20:23 Acuity: KODY 3 jh5 Triage Assessment: 20:26 General: Appears uncomfortable, well groomed, well developed, Behavior is calm, jh5 cooperative, appropriate for age. Pain: Denies pain. Respiratory: Breath sounds with crackles. Historical: - Allergies: 20:26 No Known Allergies; 5 - PMHx: 20:26 Cancer, Breast; COPD; Diabetes - NIDDM; Hypertension; [facility] - Immunization history:: Adult Immunizations up to date. - Social history:: Smoking status: Patient reports the use of cigarette tobacco products, smokes one pack cigarettes per day. Screenin:00 [facility] ED Fall Risk Assessment (Adult) History of falling in the last 3 months, jb4 including since admission No falls in past 3 months (0 pts) Confusion or Disorientation No (0 pts) Score/Fall Risk Level 0 - 2 = Low Risk Oriented to surroundings, Maintained a safe environment. Abuse screen: Denies threats or abuse. Nutritional screening: No deficits noted. Tuberculosis screening: No symptoms or risk factors identified. Assessment: 22:00 General: Appears in no apparent distress. comfortable, Behavior is calm, cooperative, jb4 appropriate for age. Pain: Denies pain. Neuro: Level of Consciousness is awake, alert, obeys commands, Oriented to person, place, time, situation. Cardiovascular: Patient's skin is warm and dry. Respiratory: Reports shortness of breath at rest on exertion Airway is patent Respiratory effort is even, labored, Respiratory pattern is regular, symmetrical. GI: No signs and/or symptoms were reported involving the gastrointestinal system. : No signs and/or symptoms were reported regarding the genitourinary system. EENT: No signs and/or symptoms were reported regarding the EENT system. Derm: Skin is intact, Skin is pink, warm \T\ dry. Musculoskeletal: Circulation, motion, and sensation intact. Range of motion: intact in all extremities. 23:00 Reassessment: Patient appears in no apparent distress at this time. Patient and/or jb4 family updated on plan of care and expected duration. Pain level reassessed. Patient is alert, oriented x 3, equal unlabored respirations, skin warm/dry/pink. 03/25 00:00 Reassessment: Patient appears in no apparent distress at this time. Patient and/or jb4 family updated on plan of care and expected duration. Pain level reassessed. Patient is alert, oriented x 3, equal unlabored respirations, skin warm/dry/pink. 01:00 Reassessment: Patient appears in no apparent distress at this time. Patient and/or jb4 family updated on plan of care and expected duration. Pain level reassessed. Patient is alert, oriented x 3, equal unlabored respirations, skin warm/dry/pink. 01:55 Reassessment: Patient appears in no apparent distress at this time. Patient and/or jb4 family updated on plan of care and expected duration. Pain level reassessed. Patient is alert, oriented x 3, equal unlabored respirations, skin warm/dry/pink. Vital Signs: 03/24 20:23 BP 138 / 54; Pulse 78; Resp 22; Temp 98.7; Pulse Ox 92% on 3 lpm NC; Weight 105.69 kg; jh5 Height 5 ft. 9 in. (175.26 cm); Pain 0/10; 22:30 BP 130 / 74; Pulse 70; Resp 20; Pulse Ox 95% on 2 lpm NC; [facility] 23:30 BP 116 / 64; Pulse 81; Resp 20; Pulse Ox 96% on Nebulizer Mask; [facility] 03/25 00:15 BP 134 / 71; Pulse 80; Resp 18; Pulse Ox 91% on R/A; 4 01:45 BP 127 / 69; Pulse 102; Resp 22; Pulse Ox 95% on R/A; [facility] 03/24 20:23 Body Mass Index 34.41 (105.69 kg, 175.26 cm) [facility] ED Course: 03/24 19:23 Patient arrived in ED[address] [facility] 20:26 Triage completed. [facility] 20:26 Arm band placed on right wrist. [facility] 21:01 Alonso Malcolm MD is Attending Physician. [facility] 22:01 Rico Salcedo, RN is Primary Nurse. 4 22:18 Lactate w/ 2H reflex if indic. Sent. jb4 22:19 Troponin HS Sent. jb4 22:19 PT-INR Sent. jb4 22:19 NT PRO-BNP Sent. jb4 22:19 Magnesium Sent. jb4 22:19 LFT's Sent. jb4 22:19 CBC with Diff Sent. jb4 22:19 Basic Metabolic Panel Sent. jb4 23:10 Ziyad Baires MD is Hospitalizing Provider. [facility] 03/25 01:55 No provider procedures requiring assistance completed. Patient admitted, IV remains in jb4 place. 09:00 Primary Nurse role handed off by Rico Salcedo, RN jl7 Administered Medications: 03/24 22:53 Drug: levofloxacin 500 mg Volume: 100 ml; Route: IVPB; Infused Over: 60 mins; Site: jb left antecubital; 22:54 Drug: SOLU-Medrol (methylPrednisoLONE) 125 mg Route: IVP; Site: left antecubital; [facility] 22:54 Drug: Xopenex (levalbuterol) 3.75 mg Route: Inhalation; [facility] 22:54 Drug: AtroVENT (ipratropium) Aerosol 0.5 mg Route: Inhalation; [facility] 03/25 00:00 Drug: Decadron - Dexamethasone 10 mg Route: IVP; Site: left antecubital; jb4 00:00 Drug: Pepcid (famotidine) 20 mg Route: IVP; Site: left antecubital; jb4 00:00 Drug: Xopenex (levalbuterol) 1.25 mg Route: Inhalation; jb4 Outcome: 03/24 23:11 Decision to Hospitalize by Provider. [facility] 03/25 01:55 Admitted to ER Hold. Please see [facility] for further documentation. jb4 Condition: stable Discharge instructions given to patient, Instructed on the need for admit, Demonstrated understanding of instructions. 13:45 Patient left the ED. jl7 Signatures: Alonso Malcolm MD MD cha Bryson, James, RN RN jb4 Vandana Hein RN RN jl7 Jazzy Burgosj6 Charu Guzman RN RN jh5
--- NOTE | 2022-03-24 23:28 | P.HP ---
Certification for Inpatient Patient admitted to: Inpatient With expected LOS: <2 Midnights Patient will require the following post-hospital care: None Practitioner: I am a practitioner with admitting privileges, knowledge of patient current condition, hospital course, and medical plan of care. Services: Services provided to patient in accordance with Admission requirements found in Title 42 Section 412.3 of the Code of Federal Regulations <Arcelia rBidges - Last Filed: 03/25/22 00:12> Patient History Date of Service: 03/25/22 Reason for admission: COPD Exacerbation History of Present Illness: Patient is a 71 year old female with past medical history of COPD, insulin dependent type 2 diabetes, hypertension, tobacco abuse who presented to the emergency department with complaints of shortness of breath, congestion, runny nose. She reports these symptoms began about 5 days ago but have been getting progressively worse. She states that she has home oxygen but and does not typically use it, but has been requiring it the past few days. She was noted to be saturating 89% on room air upon arrival and placed on NC. No significant lab abnormalities. Chest xray negative. Covid/flu negative. She was given levofloxacin, breathing treatments, and steroids in the emergency department. ED provider wishes to admit patient for further management. Home medications list reviewed: Yes - Past Medical/Surgical History Diabetic: Yes -: DM Type 2, Insulin Dependent -: HTN -: Hyperlipidemia -: COPD -: Tobacco abuse -: JOHNNIE -: ulcerative coltis -: Breast Cancer -: Tubal ligation Psychosocial/ Personal History: . - Family History Father -: Hypertension Notes: GERD Mother -: GI disease Notes: GERD - Social History Smoking Status: Current every day smoker Alcohol use: No CD- Drugs: No Caffeine use: Yes Place of Residence: Home <Arcelia Bridges - Last Filed: 03/25/22 00:12> Date of Service: 03/25/22 <Ziyad Baires - Last Filed: 03/25/22 09:54> Allergies No Known Allergies Allergy (Verified 12/14/20 10:23) Home Medications: RX: Mesalamine [Apriso] 4 tab PO DAILY 05/10/19 RX: Omeprazole [Prilosec] 40 mg PO DAILY 05/10/19 RX: carvediloL [Carvedilol] 12.5 mg PO BID 08/08/19 Albuterol Inhaler [Ventolin Inhaler] 2 puff IH Q6H PRN 08/06/20 Anastrozole [Arimidex] 1 mg PO DAILY 08/06/20 Calcium Carbonate [Calcium] 600 mg PO BID 08/06/20 Cholecalciferol (Vitamin D3) [Vitamin D3] 125 mcg PO DAILY 08/06/20 Fluticasone/Umeclidin/Vilanter [Trelegy Ellipta 100-62.5-25] 1 each IH DAILY 08/06/20 Insulin Glargine,Hum.rec.anlog [Basaglar Kwikpen U-100] 38 unit SQ BEDTIME 08/06/20 RX: Multivitamin 1 each PO DAILY 08/06/20 Atorvastatin Calcium [Lipitor] 40 mg PO BEDTIME 12/14/20 Review of Systems General: Fever, Malaise Respiratory: Shortness of Breath <Arcelia Bridges - Last Filed: 03/25/22 00:12> Physical Examination - Physical Exam General: Alert, In no apparent distress HEENT: Atraumatic, EOMI, Sclerae nonicteric Neck: Supple, 2+ carotid pulse no bruit Respiratory: Expiratory wheezes Cardiovascular: Regular rate/rhythm, Normal S1 S2 Gastrointestinal: Normal bowel sounds, No tenderness Musculoskeletal: No tenderness Integumentary: No rashes Neurological: Normal speech, Normal affect - Studies Laboratory Data (last 24 hrs) 03/24/22 22:15: PT 10.4, INR 0.95 03/24/22 22:15: WBC 9.10, Hgb 15.1 H, Hct 44.0, Plt Count 348 03/24/22 22:15: Sodium 134 L, Potassium 3.9, BUN 20 H, Creatinine 0.83, Glucose 204 H, Magnesium 2.2, Total Bilirubin 0.4, AST 9 L, ALT 26, Alkaline Phosphatase 117 <Arcelia Bridges - Last Filed: 03/25/22 00:12> - Studies Laboratory Data (last 24 hrs) 03/24/22 22:15: PT 10.4, INR 0.95 03/24/22 22:15: WBC 9.10, Hgb 15.1 H, Hct 44.0, Plt Count 348 03/24/22 22:15: Sodium 134 L, Potassium 3.9, BUN 20 H, Creatinine 0.83, Glucose 204 H, Magnesium 2.2, Total Bilirubin 0.4, AST 9 L, ALT 26, Alkaline Phosphatase 117 <Ziyad Baires - Last Filed: 03/25/22 09:54> Assessment and Plan - Problems (Diagnosis) (1) COPD exacerbation Current Visit: Yes Status: Acute (2) DM type 2 (diabetes mellitus, type 2) Current Visit: Yes Status: Chronic Qualifiers: Diabetes mellitus rn long term care insulin use: with detention use Diabetes mellitus complication status: with hyperglycemia Qualified Code(s): E11.65 - Type 2 diabetes mellitus with hyperglycemia; Z79.4 - penitentiary (current) use of insulin (3) Obstructive sleep apnea Current Visit: Yes Status: Chronic (4) Hypertension Current Visit: Yes Status: Chronic Qualifiers: Hypertension type: primary hypertension Qualified Code(s): I10 - Essential (primary) hypertension (5) Hyperlipidemia Current Visit: Yes Status: Chronic Qualifiers: Hyperlipidemia type: unspecified Qualified Code(s): E78.5 - Hyperlipidemia, unspecified - Plan Patient is admitted for further management of COPD exacerbation. PRN breathing treatments, supplemental O2, and antitussives. Received levaquin in the emergency department. Pulmonology consult. ACHS glucose monitoring with moderate sliding scale and diabetic diet. Check lipid panel, TSH, and A1c in morning. Tobacco cessation counseling. Nicoderm patch provided. Patient's bringing home CPAP for JOHNNIE. Monitor and replete electrolytes per protocol. Reconcile and continue home medications. Lovenox for VTE prophylaxis. Full code. Discharge Plan: Home Plan to discharge in: 48 Hours - Advance Directives Does patient have a Living Will: No Does patient have a Durable POA for Healthcare: No - Code Status/Comfort Care Code Status Assessed: Yes Code Status: Full Code Physician Review: Patient Assessed, Agree with Above Assessment and Plan Critical Care: No Time Spent Managing Pts Care (In Minutes): 50 <Arcelia Bridges - Last Filed: 03/25/22 00:12> Physician Review: Patient Assessed, Agree with Above Assessment and Plan <Ziyad Baires - Last Filed: 03/25/22 09:54>
[2022-03-24 23:37] LABS: SARS-COV-2 RT PCR NEGATIVE (NEGATIVE)
[2022-03-24] MEDS ORDERED: FAMOTIDINE 20 MG/2 ML VIAL IV ONE (23:54)
[2022-03-24] MEDS ORDERED: dexAMETHasone 10 MG/ML VIAL ONE (23:54)
[2022-03-25] MEDS ORDERED: ALBUTEROL 2.5 MG/3 ML NEB SOL NEB PRN ×2 (01:55→12:00)
[2022-03-25] MEDS ORDERED: ONDANSETRON 4 MG/2 ML VIAL IV PRN (01:55)
[2022-03-25] MEDS ORDERED: ACETAMINOPHEN 500 MG TAB PO PRN (01:55)
[2022-03-25] MEDS ORDERED: NA CHLORIDE 0.9% 1,000 ML IV SCH (01:55)
[2022-03-25] MEDS ORDERED: MUCINEX DM 12HR.SR TAB PO PRN (01:55)
[2022-03-25] MEDS ORDERED: IPRATROPIUM BROM 0.5MG/2.5ML NEB PRN (01:55)
[2022-03-25] MEDS ORDERED: NA CHLORIDE 0.9% 1,000 ML ONE (02:58)
[2022-03-25 04:05] VITALS: BMI 34.4
[2022-03-25 05:01] LABS: Absolute Lymphocytes (CBC) 1.1 K/uL (0.7-4.9); Hematocrit 42.4 % (36.0-45.0); Lymphocytes % 13.7 % (15.3-44.8); MCV 92.4 fL (80-100); MPV 7.1 fL (7.6-11.3); RBC Red Blood Cell Count 4.59 M/uL (3.86-4.86)
[2022-03-25 05:32] LABS: Magnesium 2.1 mg/dL (1.6-2.4); Phosphorus 3.8 mg/dL (2.5-4.9); Potassium 3.7 mmol/L (3.5-5.1); Thyroid Stimulating Hormone 0.916 uIU/mL (0.358-3.740)
[2022-03-25] MEDS: INSULIN -REGULAR HUMAN 50 UNIT/0.5 ML ML SQ SCH ×2 (07:30→10:35)
[2022-03-25] MEDS ORDERED: POTASSIUM 25 MEQ EFFERV TAB PO ONE (08:00)
[2022-03-25] MEDS ORDERED: INSULIN -REGULAR HUMAN 50 UNIT/0.5 ML ML ONE ×4 (08:00→12:32)
[2022-03-25] MEDS ORDERED: METHYLPREDNISOLONE 40 MG INJ ONE (08:10)
[2022-03-25] MEDS ORDERED: ENOXAPARIN 40 MG/0.4 ML SQ ONE (08:11)
[2022-03-25] MEDS ORDERED: POTASSIUM 25 MEQ EFFERV TAB ONE (08:11)
[2022-03-25] MEDS ORDERED: ALBUTEROL 2.5 MG/3 ML NEB SOL ONE (08:28)
[2022-03-25] MEDS ORDERED: IPRATROPIUM BROM 0.5MG/2.5ML ONE (08:29)
[2022-03-25] MEDS ORDERED: PNEUMOCOCCAL VACCINE 0.5 ML IMVAC ONE (09:00)
[2022-03-25] MEDS ORDERED: METHYLPREDNISOLONE 40 MG INJ IV SCH (09:00)
[2022-03-25] MEDS ORDERED: INFLUENZA VACCINE (for 6+ mo) 0.5 ML DOSE IMVAC ONE (09:00)
[2022-03-25] MEDS ORDERED: ENOXAPARIN 40 MG/0.4 ML SQ SCH (09:00)
[2022-03-25 09:06] VITALS: O2SAT 93
--- NOTE | 2022-03-25 10:10 | P.DS ---
Admission Date: 03/24/22 Discharge Date: 03/25/22 Disposition: ROUTINE DISCHARGE Discharge Condition: GOOD Reason for Admission: COPD Exacerbation Hospital Course: DIAGNOSES: # Acute Chronic Obstructive Pulmonary Disease Exacerbation # Hyperglycemia in Type II Diabetes Mellitus # Ulcerative Colitis # Obstructive Sleep Apnea # Hypertension # Hyperlipidemia # Tobacco Use Disorder HOSPITAL COURSE: Ms. Marnie Deluca is a pleasant 71-year-old female with a past medical history significant for chronic obstructive pulmonary disease, type 2 diabetes mellitus, ulcerative colitis, hypertension, and hyperlipidemia who was admitted to the [facility] on 03/24/2022 for shortness of breath. She was admitted to the Medicine service. Upon further evaluation, she was found to have an acute chronic obstructive pulmonary disease exacerbation. Her chest x-ray revealed, "no acute cardiopulmonary process." She was treated with bronchodilators and steroids, with significant improvement in her symptoms. This morning, she stated that she felt well and would like to be discharged home. She was ambulated around the nursing station and was able to maintain adequate SPO2 readings both at rest and with exertion. She was cleared for discharge with as needed albuterol and 5 days of prednisone. On 03/25/2022, she was seen on morning rounds and deemed medically stable for discharge. She was discharged with instructions to schedule follow-up appointments with her PCP (Dr. Wilburn) and with Pulmonology (Dr. Thorpe). She was provided prescriptions for albuterol and prednisone. She and her family m raginiers were given the opportunity to ask questions and reported no further questions. Furthermore, all questions were answered to the best of my ability. A copy of this discharge summary will be sent to the above providers to facilitate continuity of care. Today, I personally spent 25 minutes on her case, of which greater than 50% of the time was spent in patient education, counseling, and coordination of care as described above. Vital Signs/Physical Exam: Temp Pulse Resp BP Pulse Ox 97.3 F 93 18 132/84 98 03/25/22 11:10 03/25/22 11:10 03/25/22 11:10 03/25/22 11:10 03/25/22 11:10 General: Alert, In no apparent distress, Oriented x3 HEENT: Atraumatic, Mucous membr. moist/pink, EOMI, Sclerae nonicteric Neck: JVD not distended Respiratory: Clear to auscultation bilaterally, Normal air movement Cardiovascular: No edema, Regular rate/rhythm, Normal S1 S2, No gallops, No rubs, No murmurs Gastrointestinal: Normal bowel sounds, Soft and benign, Non-distended, No tenderness, No rebound, No guarding Musculoskeletal: No clubbing Integumentary: No rashes Neurological: Normal speech, Cranial nerves 3-12 intact, Normal affect Laboratory Data at Discharge: WBC 8.10 K/uL (4.3-10.9) 03/25/22 04:44 Hgb 14.4 g/dL (12.0-15.0) 03/25/22 04:44 Hct 42.4 % (36.0-45.0) 03/25/22 04:44 Plt Count 341 K/uL (152-406) 03/25/22 04:44 PT 10.4 SECONDS (9.5-12.5) 03/24/22 22:15 INR 0.95 03/24/22 22:15 Sodium 135 mmol/L (136-145) L 03/25/22 04:44 Potassium 3.7 mmol/L (3.5-5.1) 03/25/22 04:44 BUN 21 mg/dL (7-18) H 03/25/22 04:44 Creatinine 0.84 mg/dL (0.55-1.02) 03/25/22 04:44 Glucose 279 mg/dL (74-106) H 03/25/22 04:44 Phosphorus 3.8 mg/dL (2.5-4.9) 03/25/22 04:44 Magnesium 2.1 mg/dL (1.6-2.4) 03/25/22 04:44 Total Bilirubin 0.4 mg/dL (0.2-1.0) 03/24/22 22:15 AST 9 U/L (15-37) L 03/24/22 22:15 ALT 26 U/L (13-56) 03/24/22 22:15 Alkaline Phosphatase 117 U/L (45-117) 03/24/22 22:15 Triglycerides 109 mg/dL (<150) 03/25/22 04:44 Cholesterol 164 mg/dL (<200) 03/25/22 04:44 HDL Cholesterol 36 mg/dL (40-60) L 03/25/22 04:44 Cholesterol/HDL Ratio 4.56 03/25/22 04:44 Home Medications: RX: Mesalamine [Apriso] 4 tab PO DAILY 05/10/19 RX: Omeprazole [Prilosec] 40 mg PO DAILY 05/10/19 RX: carvediloL [Carvedilol] 12.5 mg PO BID 08/08/19 RX: Anastrozole [Arimidex*] 1 mg PO DAILY 08/06/20 RX: Calcium Carbonate [Calcium] 600 mg PO BID 08/06/20 RX: Cholecalciferol (Vitamin D3) [Vitamin D3] 125 mcg PO DAILY 08/06/20 RX: Fluticasone/Umeclidin/Vilanter [Trelegy Ellipta 100-62.5-25] 1 each IH DAILY 08/06/20 RX: Insulin Glargine,Hum.rec.anlog [Basaglar Kwikpen U-100] 38 unit SQ BEDTIME 08/06/20 RX: Multivitamin 1 each PO DAILY 08/06/20 RX: Atorvastatin Calcium [Lipitor] 40 mg PO BEDTIME 12/14/20 RX: Albuterol Inhaler [Ventolin Inhaler*] 2 puff IH Q6H PRN #1 inhaler 03/25/22 RX: predniSONE [Prednisone*] 20 mg PO BID 5 Days #10 tab 03/25/22 New Medications: RX: predniSONE [Prednisone*] 20 mg PO BID 5 Days #10 tab RX: Albuterol Inhaler [Ventolin Inhaler*] 2 puff IH Q6H PRN #1 inhaler PRN Reason: Shortness Of Breath Physician Discharge Instructions: 1. Please call and schedule a follow-up appointment with your PCP (Dr. Wilburn) in 3-5 days 2. Please call and schedule a follow-up appointment with your Shed [facility] (Dr. Thorpe) in 5-7 days Diet: ADA Activity: Ad angela Followup: Glo Wilburn DO [OUTSIDE PHYSICIAN] - Mazin Thorpe MD [ACTIVE - CAN ADMIT] - Time spent managing pt's care (in minutes): 25
[2022-03-25 11:11] VITALS: TEMP 97.3
[2022-03-25] MEDS ORDERED: INSULIN -REGULAR HUMAN 50 UNIT/0.5 ML ML IV ONE ×2 (12:30→13:00)
[2022-03-25 13:18] VITALS: BP 139/74
--- NOTE | 2022-03-25 17:10 | EKG ---
Test Date: 2022-03-25 Test Time: 00:15:47 Compliance Administrator: MAHAMED MEASUREMENT RESULTS: Intervals: Rate: 73 W[place]: 152 QRSD: 90 QT: 408 QTc: 449 [place]: P: 82 W[place]: 152 QRS: 51 T: 76 INTERPRETIVE STATEMENTS: Normal sinus rhythm Normal ECG Compared to ECG 01/21/2021 18:11:49 Myocardial infarct finding no longer present Electronically Signed On 03-25-22 17:08:23 [employer] by Elfego Winter
== END 2022-03-25 13:48 | disposition home or self-care (01) ==
LOC: ER 19:20 → ERHOLD 23:21 → INTOOBSV 23:21
PROVIDERS: ADMIT Internal Medicine; ATTEND Internal Medicine
DX: J44.1 Chronic obstructive pulmonary disease with (acute) exacerbation (principal); E11.65 Type 2 diabetes mellitus with hyperglycemia; F17.210 Nicotine dependence, cigarettes, uncomplicated; I10 Essential (primary) hypertension; Z72.0 Tobacco use; Z79.4 Long term (current) use of insulin; G47.33 Obstructive sleep apnea (adult) (pediatric); E78.5 Hyperlipidemia, unspecified; Z20.822 Contact with and (suspected) exposure to COVID-19
CPT/HCPCS: 93005; 87040 ×2; 85025 ×2; 80048 ×2; 36415; 83735 ×2; 84100; 85610; 80061; 82947 ×5; 80076; 83605; 84443; 83036; 84484; 83880; 0240U; 71045; 94640; 94760 ×2; J7614 ×2; J1815 ×4; J7613; J7644 ×2; J1650; J1100; J7030; J2930; J2920; G0378

== ENCOUNTER 2024-06-28 07:30 | Day surgery (SDC) | payer OTHER, MEDICARE ==
[2024-06-23 13:49] LABS: Absolute Basophils 0.1 K/uL (0-0.5); Absolute Eosinophils 0.3 K/uL (0-0.5); Absolute Lymphocytes (CBC) 2.5 K/uL (0.7-4.9); Absolute Monocytes 0.6 K/uL (0.1-1.3); Absolute Neutrophil 4.9 K/uL (1.8-8.0); Eosinophils % 3.5 % (0-4.4); Hemoglobin 13.5 g/dL (12.0-15.0); Lymphocytes % 29.5 % (15.3-44.8); MCH 31.2 pg (27.0-35.0); MCHC 33.7 g/dL (32.0-36.0); MCV 92.5 fL (80-100); MPV 7.2 fL (7.6-11.3); Monocytes % 7.5 % (3.3-12.3); Neutrophils % 58.5 % (41.7-73.7); Nucleated Red Blood Cells % 0.1 % (0-0); Platelets 327 thou/uL (152-406); RBC Red Blood Cell Count 4.32 M/uL (3.86-4.86); Red Cell Distribution Width 13.2 % (12.1-15.2)
--- NOTE | 2024-06-27 16:55 | EKG ---
Test Date: 2024-06-23 Test Time: 13:27:50 Ui Ux Engineer: CELIA MEASUREMENT RESULTS: Intervals: Rate: 72 [place]: 164 QRSD: 82 QT: 394 QTc: 431 [place]: P: 75 [place]: 164 QRS: 58 T: 82 INTERPRETIVE STATEMENTS: Normal sinus rhythm Normal ECG Compared to ECG 03/25/2022 00:15:47 No significant changes Electronically Signed On 06-27-24 16:49:44 CDT by Shane Estevez
[2024-06-28] MEDS ORDERED: propofoL 200 MG/20 ML VIAL IV ONE (08:00)
[2024-06-28] MEDS: NA CHLORIDE 0.9% 1,000 ML ONE (08:00)
[2024-06-28] MEDS ORDERED: LIDOCAINE 1% MPF 30 ML VIAL ONE (08:00)
[2024-06-28 08:31] VITALS: TEMP 97.3
[2024-06-28 09:41] VITALS: O2SAT 97
[2024-06-28 09:56] VITALS: BP 152/63
== END 2024-06-28 09:54 | disposition home or self-care (01) ==
LOC: OR 07:30
PROVIDERS: ATTEND Internal Medicine Gastroenterology
PROC: 0DBE8ZX Excision of Large Intestine, Via Natural or Artificial Opening Endoscopic, Diagnostic (ICD-10-PCS; 2024-06-28)
PROC: 0DBN8ZX Excision of Sigmoid Colon, Via Natural or Artificial Opening Endoscopic, Diagnostic (ICD-10-PCS; principal; 2024-06-28 08:30)
DX: K59.00 Constipation, unspecified (principal); D12.5 Benign neoplasm of sigmoid colon; K57.30 Diverticulosis of large intestine without perforation or abscess without bleeding; Z86.0100 Personal history of colon polyps, unspecified
CPT/HCPCS: 93005; 85025; 80048; 36415; 82947; 88305; 45385; 45380; J2704; J2003; J7030

== ENCOUNTER 2024-11-30 06:08 | Day surgery (SDC) | payer OTHER, MEDICARE ==
[2024-11-28 12:21] LABS: Absolute Lymphocytes (CBC) 2.0 K/uL (0.7-4.9); Hematocrit 40.8 % (36.0-45.0); Hemoglobin 13.8 g/dL (12.0-15.0); MCH 30.6 pg (27.0-35.0); MCHC 33.8 g/dL (32.0-36.0); MCV 90.6 fL (80-100); MPV 7.2 fL (7.6-11.3); Nucleated RBC Absolute Count 0.0 (0-0); Nucleated Red Blood Cells % 0.1 % (0-0); RBC Red Blood Cell Count 4.50 M/uL (3.86-4.86); White Blood Count 6.40 thou/uL (4.3-10.9)
--- NOTE | 2024-11-28 12:24 | RAD REPORT ---
EXAMINATION: TWO VIEW CHEST XR CLINICAL INDICATION: Pre-op pending heart catheterization TECHNIQUE: 2 views of the chest was performed. COMPARISON: 03/24/2022 FINDINGS: The lungs are hyperexpanded suggesting COPD. The heart is upper limit of normal in size. No displaced fractures evident. IMPRESSION: COPD is suspected without acute finding identified. The USPSTF recommends annual screening for lung cancer with low-dose computed tomography (LDCT) in ad ults aged 50 to 80 years who have a 20 pack-year smoking history and currently smoke or have quit within the past 15 years. Screening should be discontinued once a person has not smoked for 15 years or develops a health problem that substantially limits life expectancy or the ability or willingness to have curative lung surgery.
[2024-11-28 12:32] LABS: PT Prothrombin Time 12.1 SECONDS (10-13.0); PTT, Activated Partial Thromb 31.6 SECONDS (27.2-37.4); Protime INR 1.07
[2024-11-28 12:40] LABS: Anion Gap 9.2 mEq/L (5.0-15.0); BUN Blood Urea Nitrogen 18.0 mg/dL (7-18); Glucose Level 196.0 mg/dL (74-106); Potassium 4.2 mEq/L (3.5-5.1)
[2024-11-30 10:14] VITALS: O2SAT 98
[2024-11-30 10:17] VITALS: BP 147/60
--- NOTE | 2024-11-30 23:04 | OP ---
Date of Procedure: 11/30/2024 Surgeon: Elfego Winter Procedures Performed: 1. Selective coronary angiogram. 2. Left heart catheterization. Indication: Chest pain with abnormal stress test. Access: Right common femoral artery 6-[place], closed with 6-[place] Mynx closure device. Complications: None. Bleeding: Less than 50 mL. Total Sedation Time: 1 hour, used fentanyl and Versed. Description Of Procedure: After risks, benefits, and alternatives were explained, the patient agreed to procedure and signed informed consent. The patient was brought into cardiac catheterization [facility], prepped and draped in usual sterile fashion. Then, I accessed right common femoral artery us ing micropuncture kit, ultrasound guidance, and fluoroscopy, placed 6-[place] sheath and took 6-[place] JL4 catheter into aortic root over a J-wire, engaged the left main, took standard views and exchanged for 6-[place] JR4 catheter across the aortic valve over the J-wire, measured LVEDP. Pullba ck did not record any gradient, then engaged the RCA, took standard views and removed the catheter an d the sheath and 6-[place] Mynx closure device was used for closure with good hemostasis. Findings: 1. Left main is normal. 2. LAD; proximal 30% stenosis. Rest of LAD is normal. Diagonal branch has ostial 50% stenosis. 3. Left circumflex; moderate size vessel, it is normal. OM branch has 30% stenosis in the mid segmen t. 4. RCA, there is proximal 50% and mid 50% to 60% stenosis, large and dominant artery. 5. LVEDP is elevated at 50 mmHg. Conclusion: 1. Moderate coronary artery disease. 2. Elevated LVEDP. Recommendation: 1. Aspirin, high-dose statin. 2. Repeat stress test in 6 months. SR/MODL Voice ID: [id number] Report ID: [id number]
== END 2024-11-30 09:54 | disposition home health service (06) ==
LOC: CCL 06:08
PROVIDERS: ATTEND Internal Medicine
DX: I25.10 Atherosclerotic heart disease of native coronary artery without angina pectoris (principal); I51.7 Cardiomegaly; I10 Essential (primary) hypertension; E11.9 Type 2 diabetes mellitus without complications; E78.2 Mixed hyperlipidemia; C34.90 Malignant neoplasm of unspecified part of unspecified bronchus or lung; Z88.5 Allergy status to narcotic agent; Z82.49 Family history of ischemic heart disease and other diseases of the circulatory system
CPT/HCPCS: 93005; 85025; 80048; 36415; 85610; 82947; 85730; 71046; 93458; 76937; C1893; Q9966; C1760; 99152